=== PATIENT | female | born 1960 | race Caucasian/White ===

== ENCOUNTER 2020-11-01 14:33 | Inpatient (IN) | payer MEDICARE, MEDICAID, SELFPAY ==
--- NOTE | 2020-11-01 14:40 | ECG_ITS ---
Test Reason : ALTERED MENTAL STATU Blood Pressure : / mmHG Vent. Rate : 069 BPM Atrial Rate : 069 BPM P-R Int : 120 ms QRS Dur : 074 ms QT Int : 446 ms P-R-T Axes : 074 071 068 degrees QTc Int : 477 ms Normal sinus rhythm with sinus arrhythmia Normal ECG No previous ECGs available Referred By: Allegra Pritchard Electronically Signed By:FELIPA BREWSTER
--- NOTE | 2020-11-01 14:40 | CT_ITS ---
EXAMINATION: CT HEAD WITHOUT CONTRAST CT CERVICAL SPINE WITHOUT CONTRAST CLINICAL INFORMATION: Altered mental status. Fall. COMPARISON: Brain MRI from 11/01/2020. TECHNIQUE: Contiguous axial imaging was performed from the skull base to vertex without intravenous administration of contrast. Contiguous axial imaging was performed from the upper chest through the skull base without intravenous administration of contrast. Coronal and sagittal reformats were obtained at the acquisition workstation. DLP: 882 mGy-cm FINDINGS: Head: There are regions of lost moe-white matter differentiation predominantly in the left parietal lobe, left lentiform nucleus/insula, and lateral aspect of the left cerebellar hemisphere that correlate with acute infarcts demonstrated on same-day brain MRI. Multiple additional smaller acute infarcts within the right cerebellar hemisphere, midbrain, and bilateral frontoparietal deep white matter are better demonstrated on MRI. There are also chronic appearing infarcts in the high bilateral parietal lobes with associated volume loss. There is no evidence of acute intracranial hemorrhage. The ventricles are normal in size and configuration. No evidence for obstructive hydrocephalus. No abnormal mass effect or midline shift. No extra-axial fluid collections. No acute soft tissue or osseous abnormalities. The mastoid air cells and paranasal sinuses are clear. Cervical Spine: The atlantooccipital and atlantoaxial articulations remain well aligned. Straightening of the normal cervical lordosis. Mild degenerative anterolisthesis of C3 on C4. Otherwise, there is anatomic alignment of the vertebral bodies and posterior elements. No evidence of acute fracture or subluxation. The vertebral body heights are maintained. Advanced degenerative disc disease from C4-C7 with disc-osteophyte complexes. Prominent facet and uncovertebral joint arthropathy leads to osseous encroachment on the neural foramina from C2-T1. There is no prevertebral soft tissue swelling. The thyroid gland and remaining cervical soft tissues are normal in appearance. Mild to moderate underlying centrilobular emphysema. CT/CT cervical spine wo con IMPRESSION: 1. Multifocal supratentorial and infratentorial acute infarcts, most notably within the left parietal lobe, left lentiform nucleus/insula, and left cerebellar hemisphere. No evidence of associated acute intracranial hemorrhage. Chronic insufflation of the bilateral parietal lobes. 2. No evidence of acute fracture or traumatic subluxation of the cervical spine. Moderate multilevel degenerative spondyloarthropathy of the cervical spine.
--- NOTE | 2020-11-01 14:41 | XR_ITS ---
EXAMINATION: CHEST AND RIGHT FOOT. CLINICAL INFORMATION: Fall. Pain. COMPARISON: None TECHNIQUE: Chest one view. Right foot 3 views. FINDINGS: Chest: The lungs are well-expanded and clear of acute pneumonic consolidation. There is no pleural effusion. The heart size and pulmonary vascularity is normal. No gross bony abnormality seen. Right foot: There is moderate hallux valgus deformity first MTP joint. There is no visible acute fracture, dislocation or subluxation seen. The ankle mortise and subtalar joints are normal. There is a lateral fibular plate and screws for old healed fibular fracture. XR/XR chest 1V IMPRESSION: Unremarkable chest exam. No visible acute fracture, dislocation or subluxation right foot. There is distal lateral fibular plate for a healed fracture..
--- NOTE | 2020-11-01 14:42 | ED_ITS ---
HPI - Altered Mental Status General Chief Complaint: Altered Mental Status Stated Complaint: FALL Time Seen by Provider: 11/01/20 14:39 Source: family and EMS Mode of arrival: EMS Limitations: altered mental status History of Present Illness HPI narrative: not seen by family in 2 days, EMS called found to be confused, wandering around the house with bleeding from R ear complaint: altered mental status Onset (ago): unknown Timing confirmed by: family member Severity: similar to previous episodes Consistency of symptoms: getting Worse Context: alcohol abuse and drug abuse Associated symptoms: denies other symptoms Related Data Home Medications Medication Instructions Recorded Confirmed bupropion HCl [Wellbutrin XL] 300 mg PO DAILY 11/01/20 11/01/20 famotidine 20 mg PO BID 11/01/20 11/01/20 naltrexone 50 mg PO BEDTIME 11/01/20 11/01/20 pantoprazole [Protonix] 40 mg PO DAILY 11/01/20 11/01/20 paroxetine HCl [Paxil] 20 mg PO DAILY 11/01/20 11/01/20 salmeterol [Serevent Diskus] 1 inh INHALATION BID 11/01/20 11/01/20 Allergies Allergy/AdvReac Type Severity Reaction Status Date / Time No Known Allergies Allergy Verified 11/01/20 14:40 Review of Systems Review of Systems: ROS unable to be obtained due to altered mental status PMFSH Past Medical History Attestation statement: The following information was validated with the patient. Medical History (Updated 11/01/20 @ 16:17 by Liberty Kamara DO) Substance abuse Unknown family medical history Surgical History (Updated 11/01/20 @ 14:49 by Indu Corona) Surgical history unknown Social History Social History (Updated 11/01/20 @ 14:49 by Liberty Kamara DO) Smoking Status: Current every day smoker Use of substances other than those prescribed or required for medical reasons: Yes Advance Directives: No Advance Directives Information Provided: No Physical Exam Vital Signs: Vital Signs: Last Vital Signs Temp 98.7 F 11/01/20 15:40 Pulse 68 11/01/20 15:40 Resp 16 11/01/20 15:40 BP 146/87 H 11/01/20 15:40 Pulse Ox 98 11/01/20 15:40 Body Mass Index 13.7 Appearance: Alert. Oriented X1 moderate acute distress. Eyes: Pupils equal, round and reactive to light. ENT: Pharynx normal. R ear upper pinna laceration 4cm anteriorly down to cartilage ragged and avulsed, R TM scant hemotympanum noted ?hard to tell with blood that went into canal Neck: Normal inspection. Neck supple. CVS: Normal heart rate and rhythm. Pulses normal. Respiratory: No respiratory distress. Breath sounds normal. Abdomen: Soft and non-tender. Skin: Skin warm and dry. Normal skin color. Normal skin turgor. Extremities: No lower extremity edema. R foot erythematous, hot to touch, NV intact Neuro: Oriented X 1. No motor deficit. No sensory deficit. Follows commands, moderate expressive aphasia NIH Stroke Scale Internal: Initial- Upon Arrival Level of Consciousness: Alert Level of Consciousness Questions: Answers one question correctly Level of Consciousness Commands: Performs one task correctly Best Gaze: Normal Visual: No visual loss Facial Palsy: Normal Motor Arm (Right): No drift Motor Arm (Left): No drift Motor Leg (Right): Drift Motor Leg (Left): No drift Limb Ataxia: Absent Sensory: Normal Best Language: Mild to moderate aphasia Dysarthia: Normal Extinction and Inattention: Visual, tactile, auditory, spatial, or personal inattention Score: 5 Course Course Course Narrative: R ear was dressed with non stick as well as pressure dressing to front and back and renee wrap MRI ordered suspect stroke last seen well on Wednesday c/o headache to her sister at that time signed out to Dr. Chatterjee pending further workup Procedures Laceration Laceration 1: Site: other (ear) Side (If applicable): right Size (cm): 4 Description: flap, irregular and contaminated Depth: involves muscle layer Pre-repair: wound explored, irrigated extensively, extensive debridement and wound margins revised Skin layer closed with: nylon Size (cm): 6-0 Number of sutures: 3 Technique: simple, interrupted MDM - Altered Mental Status MDM Narrative Medical decision making narrative: 60 yo female with hx of substance abuse here with AMS / expressive aphasia and ear laceration suspect stroke but last known well was 2 days ago and told sister she had headache - STAT head CT, cspine, CXR and R foot xray, labs, cultures, IVF, IV zosyn for erythematous R foot, will need R ear surgical repair as well Lab Data Result diagrams: 11/01/20 15:19 11/01/20 15:19 Labs: Lab Results 11/01/20 11/01/20 11/01/20 Range/Units 15:18 15:19 15:19 WBC 12.5 H (4.8-10.8) X10*3/uL RBC 3.80 L (4.20-5.50) X10*6/uL Hgb 10.4 L (12.0-16.0) g/dl Hct 32.2 L (37-47) % MCV 84.7 (80-98) fL MCH 27.4 (27.0-33.0) pg MCHC 32.3 (31.0-35.0) g/dl RDW 14.2 (11.0-16.0) % Plt Count 311 (160-400) X10*3/uL MPV 10.1 (9.4-12.3) fL Immature Gran % (Auto) 0.3 (0.0-0.4) % Neut % (Auto) 86.1 H (45-73) % Lymph % (Auto) 7.4 L (20-40) % [place] % (Auto) 4.9 (2-11) % Eos % (Auto) 1.0 (0-4) % Baso % (Auto) 0.3 (0-2) % Lymph # (Auto) 0.9 L (1.2-4.9) X10*3/uL [place] # (Auto) 0.6 (0.1-1.2) X10*3/uL Eos # (Auto) 0.1 (0.0-0.4) X10*3/uL Baso # (Auto) 0.0 (0.0-0.2) X10*3/uL Abs Immat Gran (auto) 0.04 H (0.00-0.03) X10*3/uL Absolute Neuts (auto) 10.8 H (2.0-8.3) X10*3/uL Absolute Nucleated RBC 0.000 (0.0-0.012) X10*3/uL Nucleated RBC % (auto) 0.0 (0.0-0.2) /100WBC PT (10.8-13.0) SEC INR (0.9-1.1) APTT (24.1-38.0) SEC Sodium 134 L (135-145) mmol/L Potassium 4.6 (3.3-5.1) mmol/l Chloride 102 (96-108) mmol/L Carbon Dioxide 20 L (22-29) mmol/L Anion Gap 17 (12-20) BUN 33 H (9-16) mg/dL Creatinine 1.42 H (0.5-1.4) mg/dL Estim Creat Clear Calc 25.3 Estimated GFR 38 Random Glucose 108 (60-115) mg/dL Lactic Acid (0.5-2.0) mmol/L Calcium 8.8 (8.4-10.2) mg/dL Magnesium 2.0 (1.6-2.6) mg/dL Total Bilirubin 0.7 (0.0-1.0) mg/dL Direct Bilirubin 0.3 (0.0-0.5) mg/dL AST 44 H (5-31) U/L ALT 23 (0-31) U/L Alkaline Phosphatase 97 (39-117) U/L Ammonia (13-55) umol/L Total Creatine Kinase 360 H (26-140) U/L Troponin I High Sens (<3.5-17.0) ng/L Total Protein 7.4 (6.5-8.0) g/dL Albumin 3.8 (3.5-5.0) g/dL Lipase 15 (8-78) U/L Salicylates < 5.0 L (15-30) mg/dL Acetaminophen < 1 (<30) mcg/mL Ethyl Alcohol mg/dL COVID-19 ([facility]) Negative (Negative) COVID-19 Clin Com See Note 11/01/20 11/01/20 11/01/20 Range/Units 15:19 15:19 15:19 WBC (4.8-10.8) X10*3/uL RBC (4.20-5.50) X10*6/uL Hgb (12.0-16.0) g/dl Hct (37-47) % MCV (80-98) fL MCH (27.0-33.0) pg MCHC (31.0-35.0) g/dl RDW (11.0-16.0) % Plt Count (160-400) X10*3/uL MPV (9.4-12.3) fL Immature Gran % (Auto) (0.0-0.4) % Neut % (Auto) (45-73) % Lymph % (Auto) (20-40) % [place] % (Auto) (2-11) % Eos % (Auto) (0-4) % Baso % (Auto) (0-2) % Lymph # (Auto) (1.2-4.9) X10*3/uL [place] # (Auto) (0.1-1.2) X10*3/uL Eos # (Auto) (0.0-0.4) X10*3/uL Baso # (Auto) (0.0-0.2) X10*3/uL Abs Immat Gran (auto) (0.00-0.03) X10*3/uL Absolute Neuts (auto) (2.0-8.3) X10*3/uL Absolute Nucleated RBC (0.0-0.012) X10*3/uL Nucleated RBC % (auto) (0.0-0.2) /100WBC PT (10.8-13.0) SEC INR (0.9-1.1) APTT (24.1-38.0) SEC Sodium (135-145) mmol/L Potassium (3.3-5.1) mmol/l Chloride (96-108) mmol/L Carbon Dioxide (22-29) mmol/L Anion Gap (12-20) BUN (9-16) mg/dL Creatinine (0.5-1.4) mg/dL Estim Creat Clear Calc Estimated GFR Random Glucose (60-115) mg/dL Lactic Acid 1.5 (0.5-2.0) mmol/L Calcium (8.4-10.2) mg/dL Magnesium (1.6-2.6) mg/dL Total Bilirubin (0.0-1.0) mg/dL Direct Bilirubin (0.0-0.5) mg/dL AST (5-31) U/L ALT (0-31) U/L Alkaline Phosphatase (39-117) U/L Ammonia 35 (13-55) umol/L Total Creatine Kinase (26-140) U/L Troponin I High Sens 67.9 H (<3.5-17.0) ng/L Total Protein (6.5-8.0) g/dL Albumin (3.5-5.0) g/dL Lipase (8-78) U/L Salicylates (15-30) mg/dL Acetaminophen (<30) mcg/mL Ethyl Alcohol mg/dL COVID-19 ([facility]) (Negative) COVID-19 Clin Com 11/01/20 11/01/20 Range/Units 15:19 15:51 WBC (4.8-10.8) X10*3/uL RBC (4.20-5.50) X10*6/uL Hgb (12.0-16.0) g/dl Hct (37-47) % MCV (80-98) fL MCH (27.0-33.0) pg MCHC (31.0-35.0) g/dl RDW (11.0-16.0) % Plt Count (160-400) X10*3/uL MPV (9.4-12.3) fL Immature Gran % (Auto) (0.0-0.4) % Neut % (Auto) (45-73) % Lymph % (Auto) (20-40) % [place] % (Auto) (2-11) % Eos % (Auto) (0-4) % Baso % (Auto) (0-2) % Lymph # (Auto) (1.2-4.9) X10*3/uL [place] # (Auto) (0.1-1.2) X10*3/uL Eos # (Auto) (0.0-0.4) X10*3/uL Baso # (Auto) (0.0-0.2) X10*3/uL Abs Immat Gran (auto) (0.00-0.03) X10*3/uL Absolute Neuts (auto) (2.0-8.3) X10*3/uL Absolute Nucleated RBC (0.0-0.012) X10*3/uL Nucleated RBC % (auto) (0.0-0.2) /100WBC PT 12.3 (10.8-13.0) SEC INR 1.0 (0.9-1.1) APTT 27.8 (24.1-38.0) SEC Sodium (135-145) mmol/L Potassium (3.3-5.1) mmol/l Chloride (96-108) mmol/L Carbon Dioxide (22-29) mmol/L Anion Gap (12-20) BUN (9-16) mg/dL Creatinine (0.5-1.4) mg/dL Estim Creat Clear Calc Estimated GFR Random Glucose (60-115) mg/dL Lactic Acid (0.5-2.0) mmol/L Calcium (8.4-10.2) mg/dL Magnesium (1.6-2.6) mg/dL Total Bilirubin (0.0-1.0) mg/dL Direct Bilirubin (0.0-0.5) mg/dL AST (5-31) U/L ALT (0-31) U/L Alkaline Phosphatase (39-117) U/L Ammonia (13-55) umol/L Total Creatine Kinase (26-140) U/L Troponin I High Sens (<3.5-17.0) ng/L Total Protein (6.5-8.0) g/dL Albumin (3.5-5.0) g/dL Lipase (8-78) U/L Salicylates (15-30) mg/dL Acetaminophen (<30) mcg/mL Ethyl Alcohol < 10 mg/dL COVID-19 ([facility]MANI) (Negative) COVID-19 Clin Com ECG Data ECG #1: Attestation: I personally reviewed and interpreted this ECG as follows: ECG interpretation date: 11/01/20 ECG interpretation time: 16:24 Interpretation: Rate: 69 Rhythm: NSR [place]: normal Normal P waves. Normal CHELSEY. Normal QRS complex. ST T wave : no ALCIRA qTC: normal prior studies: no acute ischemia The study has been interpreted contemporaneously by me. . Discharge Plan Discharge Clinical Impression: Encephalopathy, Expressive aphasia Laceration of ear Qualifiers: Encounter type: initial encounter Laterality: right Qualified Code(s): S01.311A - Laceration without foreign body of right ear, initial encounter Patient Disposition: Admitted As Inpatient
[2020-11-01 14:44] VITALS: BP 162/93; RESP 20; BMI 13.7
--- NOTE | 2020-11-01 14:45 | XR_ITS ---
EXAMINATION: CHEST AND RIGHT FOOT. CLINICAL INFORMATION: Fall. Pain. COMPARISON: None TECHNIQUE: Chest one view. Right foot 3 views. FINDINGS: Chest: The lungs are well-expanded and clear of acute pneumonic consolidation. There is no pleural effusion. The heart size and pulmonary vascularity is normal. No gross bony abnormality seen. Right foot: There is moderate hallux valgus deformity first MTP joint. There is no visible acute fracture, dislocation or subluxation seen. The ankle mortise and subtalar joints are normal. There is a lateral fibular plate and screws for old healed fibular fracture. XR/XR foot RT min 3V IMPRESSION: Unremarkable chest exam. No visible acute fracture, dislocation or subluxation right foot. There is distal lateral fibular plate for a healed fracture..
--- NOTE | 2020-11-01 14:55 | PC.NURSE ---
SPOKE WITH SISTER LUCIANO, STATES SHE LAST SAW PT WEDNESDAY AND PT HAD A H/A. DID NOT HEAR FRO HER SINCE AND USUALLY TALKS TO HER TWICE A DAY. WHEN SHE WENT TO PT HOUSE, PT UNABLE TO GET HER WORDS OUT. SISTER THINKS SHE HAS NOT BEEN GOING TO GET HER MEDICATIONS SHE IS SUPPOSED TO. SISTER STATES PT HAS BEEN POSSIBLY USING CRACK OR HUFFING. SHE IS WORRIED FOR PT WELL BEING. LUCIANO CAN BE REACHED AT [phone]
[2020-11-01] MEDS: 0.9 % Sodium Chloride 1,000 ML 999 ML IVCONT ×2 (15:24→16:53)
[2020-11-01 15:26] VITALS: BP 147/91; PULSE 76; RESP 11; TEMP 36.8; O2SAT 100
[2020-11-01 15:30] LABS: MANUAL DIFF FLAG NO
[2020-11-01 15:31] LABS: Basophils Percent Auto 0.3 % (0-2); Eosinophils Absolute Auto 0.1 X10*3/uL (0.0-0.4); Hematocrit 32.2 % (37-47); Hemoglobin 10.4 g/dl (12.0-16.0); Imm Gran Abs Auto 0.04 X10*3/uL (0.00-0.03); Imm Gran Pct Auto 0.3 % (0.0-0.4); Lymphocytes Absolute Auto 0.9 X10*3/uL (1.2-4.9); Lymphocytes Percent Auto 7.4 % (20-40); Mean Corpuscular HGB Conc 32.3 g/dl (31.0-35.0); Mean Corpuscular Hemoglobin 27.4 pg (27.0-33.0); Mean Corpuscular Volume 84.7 fL (80-98); Mean Platelet Volume 10.1 fL (9.4-12.3); Monocytes Absolute Auto 0.6 X10*3/uL (0.1-1.2); Monocytes Percent Auto 4.9 % (2-11); Neutrophils Absolute Auto 10.8 X10*3/uL (2.0-8.3); Neutrophils Percent Auto 86.1 % (45-73); Platelet Count 311 X10*3/uL (160-400); Red Cell Distribution Width 14.2 % (11.0-16.0); White Blood Count 12.5 X10*3/uL (4.8-10.8)
[2020-11-01 15:40] VITALS: BP 146/87; PULSE 68; RESP 16; TEMP 37.1; O2SAT 98
[2020-11-01] MEDS: Piperacillin Sodium/Tazobactam 3.375 GM in 0.9 % Sodium Chloride 50 ML IV (15:45)
[2020-11-01 15:55] LABS: Ammonia 35 umol/L (13-55)
[2020-11-01 15:57] LABS: COVID-19 Test Negative (Negative)
[2020-11-01 15:58] LABS: Lactic Acid 1.5 mmol/L (0.5-2.0)
[2020-11-01 16:01] LABS: Ethanol < 10 mg/dL
[2020-11-01 16:03] LABS: Prothrombin Time 12.3 SEC (10.8-13.0)
[2020-11-01 16:06] LABS: Partial Thromboplastin Time 27.8 SEC (24.1-38.0)
--- NOTE | 2020-11-01 16:10 | MR_ITS ---
EXAMINATION: MR BRAIN WITHOUT CONTRAST CLINICAL INFORMATION: Altered mental status. Expressive aphasia. COMPARISON: Head CT 11/01/2020. TECHNIQUE: Multiplanar, multisequence imaging of the brain was performed without intravenous contrast. FINDINGS: Multiple scattered foci of acute infarction are seen within the varying vascular territories. Infarcts are seen within the left frontal lobe, bilateral parietal lobes, left parietal temporal lobe, left occipital lobe, left basal ganglia, left midbrain, and left more than right cerebellum. There is cytotoxic edema within the areas of infarction. Chronic infarction with areas of gliosis are seen in the bilateral occipital lobes. The ventricles are normal in size without hydrocephalus. No hemorrhage is seen on the GRE sequence. There is no mass or extra-axial fluid collection. The major arterial flow voids are preserved at the skull base. The orbital contents appear normal. MR/MR head/brain wo con IMPRESSION: Numerous foci of acute infarction seen within multiple vascular territories most concerning for an embolic etiology. The greatest burden of infarcts are seen in the left MCA vascular territory. Chronic infarcts are seen within the bilateral occipital lobes. There is no hemorrhage or mass effect.
[2020-11-01 16:19] LABS: Troponin-I High Sensitivity 67.9 ng/L (<3.5-17.0)
[2020-11-01 16:23] LABS: Acetaminophen LAB < 1 mcg/mL (<30); Alanine Aminotransferase 23 U/L (0-31); Albumin Level 3.8 g/dL (3.5-5.0); Alkaline Phosphatase 97 U/L (39-117); Anion Gap 17 (12-20); Aspartate Amino Transferase 44 U/L (5-31); Bilirubin Direct 0.3 mg/dL (0.0-0.5); Bilirubin Total 0.7 mg/dL (0.0-1.0); Blood Urea Nitrogen 33 mg/dL (9-16); Calcium 8.8 mg/dL (8.4-10.2); Carbon Dioxide 20 mmol/L (22-29); Chloride 102 mmol/L (96-108); Creatinine Clr Calc Pharmacy 25.3; Estimated Glomerular Filt Rate 38; Glucose Random 108 mg/dL (60-115); Lipase 15 U/L (8-78); Potassium 4.6 mmol/l (3.3-5.1); Salicylate < 5.0 mg/dL (15-30); Sodium 134 mmol/L (135-145); Total Protein 7.4 g/dL (6.5-8.0)
--- NOTE | 2020-11-01 17:30 | PC.NURSE ---
call placed to pt sister to review MRI screening form, no answer at this time
[2020-11-01 18:23] LABS: Glucose Urine UA NEG (NEG); Leukocyte Esterase Urine NEG (NEG); Nitrite Urine NEG (NEG); Urine Blood 1+ (NEG); Urine Ketones NEG (NEG); Urine Protein TRACE MG/DL (NEG-TRACE)
[2020-11-01 18:26] LABS: Appearance Urine CLEAR; Color Urine YELLOW; PH 6.5 (5.0-8.0)
[2020-11-01 18:35] LABS: Amphetamine Screen Urine Not Detected (Not Detect); Barbiturates, Urine Not Detected (Not Detect); Benzodiazepines Screen Urine POSITIVE (Not Detect); Cannabinoid Screen Urine Not Detected (Not Detect); Cocaine Screen Urine POSITIVE (Not Detect); Opiate Screen Urine POSITIVE (Not Detect); Phencyclidine Screen Urine Not Detected (Not Detect)
[2020-11-01 18:44] LABS: Squamous Epithelial Cell Urine 2+ /LPF; WBC Urine 0-2 /HPF (0-4)
[2020-11-01] MEDS: Aspirin 81 MG TAB.CHEW 324 MG PO (19:51)
--- NOTE | 2020-11-01 20:47 | PM.IMHP ---
History of Present Illness Date of Service: 11/01/20 Chief Complaint: Altered mentation, aphasia This is a 60-year-old female with past medical history of polysubstance abuse, GERD, who presents to the hospital after family found her to be altered at home. History is obtained mostly from ED physician as well as EMR as patient is somewhat confused, not following my questions and not answering appropriately. According to chart Past shins family tried to reach her but were unable to contact her for 2 days, her sister went to her home and found her wandering around had aphasic speech. Therefore EMS was called and patient was brought into the hospital. Patient herself denies any symptoms at this time but cubes repeating herself that she wants food. She is not oriented to place or time. Unable to obtain rest of review of system is patient is altered and is not really answer my questions. On arrival to the ED hemodynamically stable with no significant abnormal vitals Labs are significant for WBC count of 12.5, globin of 10.4, sodium of 134, BUN of 33 with a creatinine of 1.42, AST of 44, CPK of 360, high sensitivity troponin of 67.9, patient denies chest pain. Initial head CT was negative, MRI done that in the day showed numerous foci of acute infarction seen within multiple vascular territories most concerning for an embolic etiology. The greatest burden of infarcts are seen in the left MCA vascular territory. Chronic infarcts are seen within the bilateral occipital lobes. no hemorrhage or mass effect. I am unable to obtain any past medical history as patient is altered and no previous admissions to the hospital a records on EMR. But according to medication she is taking famotidine, pantoprazole, paroxetine, mg p.o. pre on which indicate history of GERD, and depression Patient also has positive UDS for cocaine and opioids and admitted to using both. Therefore polysubstance abuse. Review of Systems Review of Systems: Yes Unobtainable due to mental condition Neurologic: Reports confusion Psychiatric: Psychiatric: Reports confusion [facility] Medical History Substance abuse Unknown family medical history Surgical History (Updated 11/01/20 @ 14:49 by Indu Corona) Surgical history unknown Social History (Updated 11/01/20 @ 14:49 by Liberty Kamara DO) Smoking Status: Current every day smoker Use of substances other than those prescribed or required for medical reasons: Yes Advance Directives: No Advance Directives Information Provided: No Meds Allergies Allergy/AdvReac Type Severity Reaction Status Date / Time No Known Allergies Allergy Verified 11/01/20 14:40 Home Medications Medication Instructions Recorded Confirmed Type bupropion HCl [Wellbutrin XL] 300 mg PO DAILY 11/01/20 11/01/20 History famotidine 20 mg PO BID 11/01/20 11/01/20 History naltrexone 50 mg PO BEDTIME 11/01/20 11/01/20 History pantoprazole [Protonix] 40 mg PO DAILY 11/01/20 11/01/20 History paroxetine HCl [Paxil] 20 mg PO DAILY 11/01/20 11/01/20 History salmeterol [Serevent Diskus] 1 inh INHALATION BID 11/01/20 11/01/20 History Physical Exam Vital Signs and Narrative: Vital Signs: Last Vital Signs Temp 98.7 F 11/01/20 15:40 Pulse 68 11/01/20 15:40 Resp 16 11/01/20 15:40 BP 146/87 H 11/01/20 15:40 Pulse Ox 98 11/01/20 15:40 Body Mass Index 13.7 Const: Other: Patient agitated, does not follow my questions appropriately, keeps asking for food obsessively, nonstop. General: acute distress, confusion and poor hygiene Orientation/consciousness: oriented to person and confusion Eyes: General: appearance normal, both eyes and all related structures Pupils: Equal, round and reactive pupils present Resp: Effort & Inspection: normal respiratory effort and able to speak in complete sentences Cardio: Rate: regular rate Rhythm: regular rhythm GI: Palpation (GI): Soft to palpation Auscultation: normal bowel sounds Skin: Other: Skin appears dry, dehydrated Track randall on arms bilaterally General skin exam: no rashes or lesions noted and dry skin Neuro: Other: But I am unable to her neurological function completely as patient is not following mycommands in regards to PE General: oriented to person, confusion and Unable to assess gait Cranial nerves: Yes Equal, round and reactive pupils present Cognition (Neuro): abnormal cognition Speech: Expressive aphasia present Gait exam (Neuro): Unable to assess gait Motor exam (neuro): Other motor observations present (unable to assess strength as pt not following commands) Extrem: General: Yes normal to inspection and Yes no pedal edema Results Labs CBC and Chem 7: 11/01/20 15:19 11/01/20 15:19 Labs: Laboratory Results - last 24 hr 11/01/20 11/01/20 11/01/20 15:18 15:19 15:19 MCV 84.7 MCH 27.4 MCHC 32.3 RDW 14.2 Plt Count 311 MPV 10.1 Immature Gran % (Auto) 0.3 Neut % (Auto) 86.1 H Lymph % (Auto) 7.4 L [place] % (Auto) 4.9 Eos % (Auto) 1.0 Baso % (Auto) 0.3 Lymph # (Auto) 0.9 L [place] # (Auto) 0.6 Eos # (Auto) 0.1 Baso # (Auto) 0.0 Abs Immat Gran (auto) 0.04 H Absolute Neuts (auto) 10.8 H Absolute Nucleated RBC 0.000 Nucleated RBC % (auto) 0.0 PT INR APTT Anion Gap 17 Estim Creat Clear Calc 25.3 Estimated GFR 38 Random Glucose 108 Lactic Acid Calcium 8.8 Magnesium 2.0 Total Bilirubin 0.7 Direct Bilirubin 0.3 AST 44 H ALT 23 Alkaline Phosphatase 97 Ammonia Total Creatine Kinase 360 H Troponin I High Sens Total Protein 7.4 Albumin 3.8 Lipase 15 Urine Color Urine Appearance Urine pH Ur Specific [place] Urine Protein Urine Glucose (UA) Urine Ketones Urine Blood Urine Nitrite Ur Leukocyte Esterase Urine RBC Urine WBC Ur Squamous Epith Cells Urine Bacteria Salicylates < 5.0 L Urine Opiates Screen Acetaminophen < 1 Ur Barbiturates Screen Ur Phencyclidine Scrn Ur Amphetamines Screen U Benzodiazepines Scrn Urine Cocaine Screen U Marijuana (THC) Screen Ethyl Alcohol COVID-19 (YASMANI) Negative COVID-19 Clin Com See Note 11/01/20 11/01/20 11/01/20 15:19 15:19 15:19 MCV MCH MCHC RDW Plt Count MPV Immature Gran % (Auto) Neut % (Auto) Lymph % (Auto) [place] % (Auto) Eos % (Auto) Baso % (Auto) Lymph # (Auto) [place] # (Auto) Eos # (Auto) Baso # (Auto) Abs Immat Gran (auto) Absolute Neuts (auto) Absolute Nucleated RBC Nucleated RBC % (auto) PT INR APTT Anion Gap Estim Creat Clear Calc Estimated GFR Random Glucose Lactic Acid 1.5 Calcium Magnesium Total Bilirubin Direct Bilirubin AST ALT Alkaline Phosphatase Ammonia 35 Total Creatine Kinase Troponin I High Sens 67.9 H Total Protein Albumin Lipase Urine Color Urine Appearance Urine pH Ur Specific [place] Urine Protein Urine Glucose (UA) Urine Ketones Urine Blood Urine Nitrite Ur Leukocyte Esterase Urine RBC Urine WBC Ur Squamous Epith Cells Urine Bacteria Salicylates Urine Opiates Screen Acetaminophen Ur Barbiturates Screen Ur Phencyclidine Scrn Ur Amphetamines Screen U Benzodiazepines Scrn Urine Cocaine Screen U Marijuana (THC) Screen Ethyl Alcohol COVID-19 (YASMANI) COVID-19 BABL Media Com 11/01/20 11/01/20 11/01/20 15:19 15:51 17:57 MCV MCH MCHC RDW Plt Count MPV Immature Gran % (Auto) Neut % (Auto) Lymph % (Auto) [place] % (Auto) Eos % (Auto) Baso % (Auto) Lymph # (Auto) [place] # (Auto) Eos # (Auto) Baso # (Auto) Abs Immat Gran (auto) Absolute Neuts (auto) Absolute Nucleated RBC Nucleated RBC % (auto) PT 12.3 INR 1.0 APTT 27.8 Anion Gap Estim Creat Clear Calc Estimated GFR Random Glucose Lactic Acid Calcium Magnesium Total Bilirubin Direct Bilirubin AST ALT Alkaline Phosphatase Ammonia Total Creatine Kinase Troponin I High Sens Total Protein Albumin Lipase Urine Color YELLOW Urine Appearance CLEAR Urine pH 6.5 Ur Specific [place] 1.020 Urine Protein TRACE Urine Glucose (UA) NEG Urine Ketones NEG Urine Blood 1+ H Urine Nitrite NEG Ur Leukocyte Esterase NEG Urine RBC 5-9 H Urine WBC 0-2 Ur Squamous Epith Cells 2+ Urine Bacteria NONE Salicylates Urine Opiates Screen Acetaminophen Ur Barbiturates Screen Ur Phencyclidine Scrn Ur Amphetamines Screen U Benzodiazepines Scrn Urine Cocaine Screen U Marijuana (THC) Screen Ethyl Alcohol < 10 COVID-19 (YASMANI) COVID-19 BABL Media Com 11/01/20 17:57 MCV MCH MCHC RDW Plt Count MPV Immature Gran % (Auto) Neut % (Auto) Lymph % (Auto) [place] % (Auto) Eos % (Auto) Baso % (Auto) Lymph # (Auto) [place] # (Auto) Eos # (Auto) Baso # (Auto) Abs Immat Gran (auto) Absolute Neuts (auto) Absolute Nucleated RBC Nucleated RBC % (auto) PT INR APTT Anion Gap Estim Creat Clear Calc Estimated GFR Random Glucose Lactic Acid Calcium Magnesium Total Bilirubin Direct Bilirubin AST ALT Alkaline Phosphatase Ammonia Total Creatine Kinase Troponin I High Sens Total Protein Albumin Lipase Urine Color Urine Appearance Urine pH Ur Specific [place] Urine Protein Urine Glucose (UA) Urine Ketones Urine Blood Urine Nitrite Ur Leukocyte Esterase Urine RBC Urine WBC Ur Squamous Epith Cells Urine Bacteria Salicylates Urine Opiates Screen POSITIVE H Acetaminophen Ur Barbiturates Screen Not Detected Ur Phencyclidine Scrn Not Detected Ur Amphetamines Screen Not Detected U Benzodiazepines Scrn POSITIVE H Urine Cocaine Screen POSITIVE H U Marijuana (THC) Screen Not Detected Ethyl Alcohol COVID-19 (YASMANI) COVID-19 Clin Com Imaging Radiologist's Impressions: Impressions Brain MRI 11/01/20 16:10 IMPRESSION: Numerous foci of acute infarction seen within multiple vascular territories most concerning for an embolic etiology. The greatest burden of infarcts are seen in the left MCA vascular territory. Chronic infarcts are seen within the bilateral occipital lobes. There is no hemorrhage or mass effect. Assessment and Plan (1) Embolic stroke: Status: Acute (2) Polysubstance abuse: Status: Acute (3) Leukocytosis: Status: Acute (4) Malnourished: Qualifiers: Malnutrition type: protein-calorie malnutrition Protein-calorie malnutrition severity: severe Qualified Code(s): E43 - Unspecified severe protein-calorie malnutrition Status: Acute (5) Low BMI: Status: Acute This is a 60-year-old female who presents to the hospital after being found altered by family. To have aphasia, MRI indicative of multiple infarcts, suggestive of embolic CVA. # embolic stroke - possibly secondary to AFib versus secondary to cocaine abuse. Although septic emboli in the setting of endocarditis in a patient with IV drug use, is less likely it remains a possibility as patient does have history of IV drug use and UDS was positive for opioids and cocaine - patient altered, has expressive aphasia, unable to obtain any further neurological exam in regards to extremities, gait, as patient not cooperating - patient has leukocytosis but is afebrile. - neurology was consulted and recommended aspirin and further stroke workup Plan: - will obtain echocardiogram, bilateral carotid Dopplers, place her on telemetry, - start her on aspirin, atorvastatin - will also start her on antibiotics, out of abundance of caution - PT/OT # possible since abuse - UDS positive for cocaine, as well as opioids - patient has track randall on both arms, and admitted to ED physician and myself that she does use heroin Plan: - will start her on hydroxyzine and clonidine p.r.n., - monitor for withdrawal symptoms # leukocytosis - patient afebrile - she does have history of IV drug use and therefore a.m. concern for endocarditis specially in the setting of embolic strokes - will start her on IV antibiotics, follow blood cultures, antibiotics can be DCd if blood cultures negative and/or patient shows no evidence of infection - follow CBC # malnourished/low BMI - most likely secondary to low oral intake DVT prophylaxis: Lovenox
[2020-11-01 22:00] VITALS: BP 150/83; PULSE 105; RESP 18; TEMP 37.4; O2SAT 98
[2020-11-02] VITALS (7 sets, daily range): BP systolic 138–181; BP diastolic 76–114; PULSE 82–99; RESP 16–20; TEMP 36.6–36.7; O2SAT 97–99
[2020-11-02] MEDS: Aspirin 81 MG TAB.CHEW PO ×2 (00:09→09:04)
[2020-11-02] MEDS: Atorvastatin Calcium 40 MG TABLET PO ×2 (00:09→20:59)
[2020-11-02] MEDS: Famotidine 20 MG TABLET 10 MG PO ×3 (00:09→20:59)
[2020-11-02] MEDS: Piperacillin Sodium/Tazobactam 2.25 GM in 0.9 % Sodium Chloride 50 ML IV ×3 (00:10→21:00)
[2020-11-02 00:31] LABS: Base Excess VBG 2.4 mmol/L; HCO3 VBG 25 mmol/L; Oxygen Saturation VBG 95.2 %; PCO2 VBG 30 mmhg; PO2 VBG 73 mmhg; pH VBG 7.53 (7.32-7.43)
[2020-11-02 00:57] LABS: Troponin-I High Sensitivity 47.4 ng/L (<3.5-17.0)
[2020-11-02] MEDS: 0.9 % Sodium Chloride Flush 3 ML SYRINGE IVFLUSH ×2 (01:00→15:03)
[2020-11-02] MEDS: vancomycin HCL 750 MG in 0.9 % Sodium Chloride 250 ML 265 MG IV (01:10)
[2020-11-02] MEDS: Enoxaparin Sodium 30 MG/0.3 ML SYRINGE SUBCUT (01:40)
[2020-11-02] MEDS: 0.9 % Sodium Chloride 1,000 ML 100 ML IVCONT ×2 (01:44→16:10)
[2020-11-02] MEDS: cloNIDine HCL 0.1 MG TABLET PO ×2 (02:41→10:43)
[2020-11-02] MEDS: hydrOXYzine HCL 25 MG TABLET PO ×4 (02:41→17:25)
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
--- NOTE | 2020-11-02 06:41 | PC.NURSE ---
no telesitters available for this patient.
[2020-11-02] MEDS: Omeprazole 20 MG CAPSULE.DR PO (06:59)
[2020-11-02] MEDS: LORazepam 2 MG/ML VIAL 0.25 MG IM (06:59)
[2020-11-02] MEDS: Salmeterol Xinafoate 50 MCG BLST.W.DEV 1 PUFF INHALE (07:48)
[2020-11-02] MEDS: LORazepam 2 MG/ML VIAL 0.25 MG IVPUSH (07:57)
[2020-11-02] MEDS: buPROPion HCl XL 300 MG TAB.ER.24H PO (08:10)
[2020-11-02] MEDS: PARoxetine HCL 20 MG TABLET PO (08:10)
--- NOTE | 2020-11-02 09:02 | PM.NEUROCN ---
History of Present Illness Data of Consult Service Date: 11/02/20 Primary Care Provider: Unknown Physician 60 years old woman with apparently history of polysubstance abuse was brought to hospital after she was found confused and with difficulty speaking. Onset of the symptoms was unclear and may be more than a day or 2 before she came to emergency room. There was no obvious focal weakness and initial workup and head CT did not reveal any abnormality. An MRI of brain was done that revealed multiple lesions and she was admitted. There was no sign of any seizures. She was unable to provide any meaningful history. She was not cooperative to history taking or examination. Review of Systems Review of Systems: Unable to perform at this time. She was not cooperative to interview or questioning. Neurologic: Reports confusion Psychiatric: Psychiatric: Reports confusion PMFSH Past Medical History Medical History (Updated 11/01/20 @ 21:18 by Adelaide Gonzales MD) Polysubstance abuse Unknown family medical history Surgical History Surgical History (Updated 11/01/20 @ 14:49 by Indu Corona) Surgical history unknown Social History Social History (Updated 11/01/20 @ 14:49 by Liberty Kamara DO) Smoking Status: Current every day smoker Use of substances other than those prescribed or required for medical reasons: Yes Advance Directives: No Advance Directives Information Provided: No Meds Allergies Allergy/AdvReac Type Severity Reaction Status Date / Time No Known Allergies Allergy Verified 11/01/20 14:40 Home Medications Medication Instructions Recorded Confirmed Type bupropion HCl [Wellbutrin XL] 300 mg PO DAILY 11/01/20 11/01/20 History famotidine 20 mg PO BID 11/01/20 11/01/20 History naltrexone 50 mg PO BEDTIME 11/01/20 11/01/20 History pantoprazole [Protonix] 40 mg PO DAILY 11/01/20 11/01/20 History paroxetine HCl [Paxil] 20 mg PO DAILY 11/01/20 11/01/20 History salmeterol [Serevent Diskus] 1 inh INHALATION BID 11/01/20 11/01/20 History Physical Exam Vital Signs: Vital Signs: Last Vital Signs Temp 98.1 F 11/02/20 00:00 Pulse 90 11/02/20 07:41 Resp 19 11/02/20 07:41 BP 181/89 H 11/02/20 07:41 Pulse Ox 98 12/12/20 07:41 Body Mass Index 13.7 This was limited exam as she was not cooperative. She told me her last name and refused to make her leg straight or answer questions. I was not sure if she fully comprehended all what I said. There was no obvious focal arm or leg weakness. Plantars were withdrawing. There was no obvious facial weakness or gaze deviation. I was unable to check visual bales. Const: General: confusion Orientation/consciousness: confusion Neuro: General: confusion Results Labs CBC & Chem 7: 11/01/20 15:19 11/01/20 15:19 Labs: Short CBC 11/01/20 Range/Units 15:19 WBC 12.5 H (4.8-10.8) X10*3/uL Hgb 10.4 L (12.0-16.0) g/dl Hct 32.2 L (37-47) % Plt Count 311 (160-400) X10*3/uL BMP 11/01/20 15:19 Sodium 134 L Potassium 4.6 Chloride 102 Carbon Dioxide 20 L BUN 33 H Creatinine 1.42 H Calcium 8.8 Cardiac Enzymes 11/01/20 Range/Units 15:19 Total Creatine Kinase 360 H (26-140) U/L Liver Function 11/01/20 Range/Units 15:19 Total Bilirubin 0.7 (0.0-1.0) mg/dL Direct Bilirubin 0.3 (0.0-0.5) mg/dL AST 44 H (5-31) U/L ALT 23 (0-31) U/L Alkaline Phosphatase 97 (39-117) U/L Albumin 3.8 (3.5-5.0) g/dL Urine 11/01/20 Range/Units 17:57 Urine Color YELLOW Urine Appearance CLEAR Urine pH 6.5 (5.0-8.0) Ur Specific [place] 1.020 (1.005-1.025) Urine Protein TRACE (NEG-TRACE) MG/DL Urine Glucose (UA) NEG (NEG) MG/DL Her MRI of brain without contrast revealed multiple area of restricted diffusion both in anterior and posterior circulation areas in both on left and right side with the largest lesion on left posterior parietal area with some element of what looked like vasogenic edema. Rest of the lesions did not seem to have any surrounding signal. These areas were also hyperintense on FLAIR, at least most of them, suggesting that this was probably subacute picture. Her tox screen was positive for cocaine. Assessment and Plan (1) Embolic stroke: Status: Acute 60 years old woman who was probably more aphasic than confused has multiple subacute bilateral anterior and posterior circulation subacute lesions suggestive of cerebral embolism. One of the lesion in left parietal area has signal around suggestive of vasogenic edema reason possibility today might be an alternate explanation such as malignancy. Overall imaging picture is somewhat atypical for vasoconstrictive syndrome sometime associated with cocaine. My recommendation at this time is to treat her with baby aspirin daily control vascular risk factors, a avoid hypotension, and have an MRI of brain with contrast also to especially look at left parietal lesion. CTA of brain and neck is also recommended to look at her vasculature and finally echocardiogram and Cardiology consultation to see if there was any obvious cardiac pathology that could create embolic phenomenon.
[2020-11-02] MEDS: OLANZapine 5 MG TABLET PO (09:04)
[2020-11-02 09:28] LABS: MANUAL DIFF FLAG NO
[2020-11-02 09:33] LABS: Basophils Absolute Auto 0.1 X10*3/uL (0.0-0.2); Basophils Percent Auto 0.5 % (0-2); Eosinophils Absolute Auto 0.3 X10*3/uL (0.0-0.4); Eosinophils Percent Auto 2.8 % (0-4); Hematocrit 33.8 % (37-47); Hemoglobin 10.7 g/dl (12.0-16.0); Imm Gran Abs Auto 0.04 X10*3/uL (0.00-0.03); Imm Gran Pct Auto 0.4 % (0.0-0.4); Lymphocytes Absolute Auto 1.2 X10*3/uL (1.2-4.9); Lymphocytes Percent Auto 10.1 % (20-40); Mean Corpuscular HGB Conc 31.7 g/dl (31.0-35.0); Mean Corpuscular Volume 85.4 fL (80-98); Mean Platelet Volume 10.8 fL (9.4-12.3); Monocytes Absolute Auto 0.7 X10*3/uL (0.1-1.2); Monocytes Percent Auto 5.8 % (2-11); Neutrophils Absolute Auto 9.2 X10*3/uL (2.0-8.3); Neutrophils Percent Auto 80.4 % (45-73); Platelet Count 282 X10*3/uL (160-400); Red Blood Count 3.96 X10*6/uL (4.20-5.50); Red Cell Distribution Width 14.3 % (11.0-16.0); White Blood Count 11.4 X10*3/uL (4.8-10.8)
--- NOTE | 2020-11-02 09:57 | PC.NURSE ---
Addendum entered by Opal De Leon RN 11/02/20 17:31: Patient continues to be restless, blood pressures elevated 180s over 1 teens, MD made aware, difficult to get true reading on dynamap. RN in room and able to keep patient still-long enough for repeat pressure, 138/88. One time dose of catapres was given prior. 1:1 sitter in pace for safety. Original Note: Patient extremely restless and jumping out of bed to the bathroom but not using it. She is alert to person only. Ativan IM was given on prior shift at 0700. Atarax was given at 0815 PO. COWS scale started on patient, MD made aware at this time. Patient scored a 23 moderate withdrawal. Patient continuously removing tele pack, nurse able to reapply for Qtc measurement per MD. Due for a carotid ultrasound, department attempted and patient was combative and refusing exam. Md ordered PO zyprexa, given. Patient is somewhat more relaxed but still very restless in the bed.
[2020-11-02 10:17] LABS: Alanine Aminotransferase 18 U/L (0-31); Albumin Level 3.3 g/dL (3.5-5.0); Alkaline Phosphatase 82 U/L (39-117); Anion Gap 15 (12-20); Aspartate Amino Transferase 28 U/L (5-31); Bilirubin Total 0.3 mg/dL (0.0-1.0); Blood Urea Nitrogen 22 mg/dL (9-16); C Reactive Protein 5.58 mg/dL (< or = 0.50); Calcium 7.9 mg/dL (8.4-10.2); Carbon Dioxide 18 mmol/L (22-29); Chloride 107 mmol/L (96-108); Creatinine Clr Calc Pharmacy 32.4; Estimated Glomerular Filt Rate 50; Glucose Random 100 mg/dL (60-115); Sodium 136 mmol/L (135-145)
--- NOTE | 2020-11-02 10:50 | P.CNPS_ITS ---
History of Present Illness Date of Service: 11/02/2020 Chief Complaint: Embolic Stroke Reason for Consult: Polysubstance use/WD Requesting physician: Allegra Pritchard Discussed with referring provider: Yes Sources of Information: patient interviewed and chart reviewed Additional Sources of Information: None HPI Narrative: Pt was admitted for ? embolic CVA. Neuro work up for CVA underway. Known Hx of IVDA. Pt difficult to evaluate given dysphasia. Past Hx gleaned from meds and chart + for depression. Noted to be confused/agitated. On interview, was restless, unkempt, agitated, dysarthic, paraphasic. Did say she was at [facility]/Oct 2020. On Direct Qs stated yes for being dopesick . Last use of heroin and cocaine on 10/31. Past Psychiatric History: Not known. No Hx M5 stays Medical Evaluation Reviewed: Yes Suspected embolic CVA. r/o endocarditis Personal & Social History: Not known currently Review of Systems Reports confusion Psychiatric: Reports confusion [facility] Medical History Polysubstance abuse Unknown family medical history Surgical History Surgical history unknown Family History: not known currently Social History: not known Substance History: Heroin/Cocaine +. Pt is on Naltrexone so ? ETOH use d/o but denies Trauma History: not known Diagnostics Vital Signs (24Hr): Vital Signs - 24 hr 11/01/20 14:44 11/01/20 15:26 11/01/20 15:40 Temperature 98.3 F 98.7 F Pulse Rate 76 68 Respiratory Rate 20 11 L 16 Blood Pressure 162/93 H 147/91 H 146/87 H Pulse Oximetry 100 98 11/01/20 22:00 11/02/20 00:00 11/02/20 07:41 Temperature 99.3 F 98.1 F Pulse Rate 105 H 85 90 Respiratory Rate 18 20 19 Blood Pressure 150/83 H 148/80 H 181/89 H Pulse Oximetry 98 99 98 Body Mass Index 13.7 Labs Results: 11/02/20 09:14 11/02/20 09:14 Labs: Laboratory Results - last 48 hr 11/01/20 11/01/20 11/01/20 15:18 15:19 15:19 WBC 12.5 H RBC 3.80 L Hgb 10.4 L Hct 32.2 L MCV 84.7 MCH 27.4 MCHC 32.3 RDW 14.2 Plt Count 311 MPV 10.1 Immature Gran % (Auto) 0.3 Neut % (Auto) 86.1 H Lymph % (Auto) 7.4 L [place] % (Auto) 4.9 Eos % (Auto) 1.0 Baso % (Auto) 0.3 Lymph # (Auto) 0.9 L [place] # (Auto) 0.6 Eos # (Auto) 0.1 Baso # (Auto) 0.0 Abs Immat Gran (auto) 0.04 H Absolute Neuts (auto) 10.8 H Absolute Nucleated RBC 0.000 Nucleated RBC % (auto) 0.0 PT INR APTT VBG pH VBG pCO2 VBG pO2 VBG HCO3 VBG O2 Saturation VBG Base Excess Sodium 134 L Potassium 4.6 Chloride 102 Carbon Dioxide 20 L Anion Gap 17 BUN 33 H Creatinine 1.42 H Estim Creat Clear Calc 25.3 Estimated GFR 38 Random Glucose 108 Lactic Acid Calcium 8.8 Magnesium 2.0 Total Bilirubin 0.7 Direct Bilirubin 0.3 AST 44 H ALT 23 Alkaline Phosphatase 97 Ammonia Total Creatine Kinase 360 H Troponin I High Sens C-Reactive Protein Total Protein 7.4 Albumin 3.8 Lipase 15 Urine Color Urine Appearance Urine pH Ur Specific [place] Urine Protein Urine Glucose (UA) Urine Ketones Urine Blood Urine Nitrite Ur Leukocyte Esterase Urine RBC Urine WBC Ur Squamous Epith Cells Urine Bacteria Salicylates < 5.0 L Urine Opiates Screen Acetaminophen < 1 Ur Barbiturates Screen Ur Phencyclidine Scrn Ur Amphetamines Screen U Benzodiazepines Scrn Urine Cocaine Screen U Marijuana (THC) Screen Ethyl Alcohol COVID-19 (YASMANI) Negative COVID-19 Clin Com See Note 11/01/20 11/01/20 11/01/20 15:19 15:19 15:19 WBC RBC Hgb Hct MCV MCH MCHC RDW Plt Count MPV Immature Gran % (Auto) Neut % (Auto) Lymph % (Auto) [place] % (Auto) Eos % (Auto) Baso % (Auto) Lymph # (Auto) [place] # (Auto) Eos # (Auto) Baso # (Auto) Abs Immat Gran (auto) Absolute Neuts (auto) Absolute Nucleated RBC Nucleated RBC % (auto) PT INR APTT VBG pH VBG pCO2 VBG pO2 VBG HCO3 VBG O2 Saturation VBG Base Excess Sodium Potassium Chloride Carbon Dioxide Anion Gap BUN Creatinine Estim Creat Clear Calc Estimated GFR Random Glucose Lactic Acid 1.5 Calcium Magnesium Total Bilirubin Direct Bilirubin AST ALT Alkaline Phosphatase Ammonia 35 Total Creatine Kinase Troponin I High Sens 67.9 H C-Reactive Protein Total Protein Albumin Lipase Urine Color Urine Appearance Urine pH Ur Specific [place] Urine Protein Urine Glucose (UA) Urine Ketones Urine Blood Urine Nitrite Ur Leukocyte Esterase Urine RBC Urine WBC Ur Squamous Epith Cells Urine Bacteria Salicylates Urine Opiates Screen Acetaminophen Ur Barbiturates Screen Ur Phencyclidine Scrn Ur Amphetamines Screen U Benzodiazepines Scrn Urine Cocaine Screen U Marijuana (THC) Screen Ethyl Alcohol COVID-19 (YASMANI) COVID-19 [email or web address] 11/01/20 11/01/20 11/01/20 15:19 15:51 17:57 WBC RBC Hgb Hct MCV MCH MCHC RDW Plt Count MPV Immature Gran % (Auto) Neut % (Auto) Lymph % (Auto) [place] % (Auto) Eos % (Auto) Baso % (Auto) Lymph # (Auto) [place] # (Auto) Eos # (Auto) Baso # (Auto) Abs Immat Gran (auto) Absolute Neuts (auto) Absolute Nucleated RBC Nucleated RBC % (auto) PT 12.3 INR 1.0 APTT 27.8 VBG pH VBG pCO2 VBG pO2 VBG HCO3 VBG O2 Saturation VBG Base Excess Sodium Potassium Chloride Carbon Dioxide Anion Gap BUN Creatinine Estim Creat Clear Calc Estimated GFR Random Glucose Lactic Acid Calcium Magnesium Total Bilirubin Direct Bilirubin AST ALT Alkaline Phosphatase Ammonia Total Creatine Kinase Troponin I High Sens C-Reactive Protein Total Protein Albumin Lipase Urine Color YELLOW Urine Appearance CLEAR Urine pH 6.5 Ur Specific [place] 1.020 Urine Protein TRACE Urine Glucose (UA) NEG Urine Ketones NEG Urine Blood 1+ H Urine Nitrite NEG Ur Leukocyte Esterase NEG Urine RBC 5-9 H Urine WBC 0-2 Ur Squamous Epith Cells 2+ Urine Bacteria NONE Salicylates Urine Opiates Screen Acetaminophen Ur Barbiturates Screen Ur Phencyclidine Scrn Ur Amphetamines Screen U Benzodiazepines Scrn Urine Cocaine Screen U Marijuana (THC) Screen Ethyl Alcohol < 10 COVID-19 (YASMANI) COVID-19 [email or web address] 11/01/20 11/02/20 11/02/20 17:57 00:10 00:10 WBC RBC Hgb Hct MCV MCH MCHC RDW Plt Count MPV Immature Gran % (Auto) Neut % (Auto) Lymph % (Auto) [place] % (Auto) Eos % (Auto) Baso % (Auto) Lymph # (Auto) [place] # (Auto) Eos # (Auto) Baso # (Auto) Abs Immat Gran (auto) Absolute Neuts (auto) Absolute Nucleated RBC Nucleated RBC % (auto) PT INR APTT VBG pH 7.53 H VBG pCO2 30 VBG pO2 73 VBG HCO3 25 VBG O2 Saturation 95.2 VBG Base Excess 2.4 Sodium Potassium Chloride Carbon Dioxide Anion Gap BUN Creatinine Estim Creat Clear Calc Estimated GFR Random Glucose Lactic Acid Calcium Magnesium Total Bilirubin Direct Bilirubin AST ALT Alkaline Phosphatase Ammonia Total Creatine Kinase Troponin I High Sens 47.4 H C-Reactive Protein Total Protein Albumin Lipase Urine Color Urine Appearance Urine pH Ur Specific [place] Urine Protein Urine Glucose (UA) Urine Ketones Urine Blood Urine Nitrite Ur Leukocyte Esterase Urine RBC Urine WBC Ur Squamous Epith Cells Urine Bacteria Salicylates Urine Opiates Screen POSITIVE H Acetaminophen Ur Barbiturates Screen Not Detected Ur Phencyclidine Scrn Not Detected Ur Amphetamines Screen Not Detected U Benzodiazepines Scrn POSITIVE H Urine Cocaine Screen POSITIVE H U Marijuana (THC) Screen Not Detected Ethyl Alcohol COVID-19 (YASMANI) COVID-19 Clin Com 11/02/20 11/02/20 09:14 09:14 WBC 11.4 H RBC 3.96 L Hgb 10.7 L Hct 33.8 L MCV 85.4 MCH 27.0 MCHC 31.7 RDW 14.3 Plt Count 282 MPV 10.8 Immature Gran % (Auto) 0.4 Neut % (Auto) 80.4 H Lymph % (Auto) 10.1 L [place] % (Auto) 5.8 Eos % (Auto) 2.8 Baso % (Auto) 0.5 Lymph # (Auto) 1.2 [place] # (Auto) 0.7 Eos # (Auto) 0.3 Baso # (Auto) 0.1 Abs Immat Gran (auto) 0.04 H Absolute Neuts (auto) 9.2 H Absolute Nucleated RBC 0.000 Nucleated RBC % (auto) 0.0 PT INR APTT VBG pH VBG pCO2 VBG pO2 VBG HCO3 VBG O2 Saturation VBG Base Excess Sodium 136 Potassium 4.0 Chloride 107 Carbon Dioxide 18 L Anion Gap 15 BUN 22 H Creatinine 1.11 Estim Creat Clear Calc 32.4 Estimated GFR 50 Random Glucose 100 Lactic Acid Calcium 7.9 L D Magnesium Total Bilirubin 0.3 Direct Bilirubin AST 28 ALT 18 Alkaline Phosphatase 82 Ammonia Total Creatine Kinase 284 H Troponin I High Sens C-Reactive Protein 5.58 H Total Protein 6.0 L Albumin 3.3 L Lipase Urine Color Urine Appearance Urine pH Ur Specific [place] Urine Protein Urine Glucose (UA) Urine Ketones Urine Blood Urine Nitrite Ur Leukocyte Esterase Urine RBC Urine WBC Ur Squamous Epith Cells Urine Bacteria Salicylates Urine Opiates Screen Acetaminophen Ur Barbiturates Screen Ur Phencyclidine Scrn Ur Amphetamines Screen U Benzodiazepines Scrn Urine Cocaine Screen U Marijuana (THC) Screen Ethyl Alcohol COVID-19 (YASMANI) COVID-19 Clin Com Imaging Radiology Impressions: ITS Impressions Brain MRI 11/01/20 16:10 IMPRESSION: Numerous foci of acute infarction seen within multiple vascular territories most concerning for an embolic etiology. The greatest burden of infarcts are seen in the left MCA vascular territory. Chronic infarcts are seen within the bilateral occipital lobes. There is no hemorrhage or mass effect. Mental Status Exam Mental Status Exam Patient Appearance: Disheveled, Perspiring, Unkempt, Bizarre and Malodorous Patient Orientation: Place and Situation Level of Consciousness: Awake, Disoriented, Restless, Obtunded and Follows Commands Patient Behavior: Posturing, Hyperactive, Belligerent and Confused Mood Description: Labile and Nervous Affect Description: Labile Patient Cognition Impaired: Yes Ability to Follow Directions: Poor Speech Pattern: Slurred Memory Description: Recent Impaired, Working Impaired and Semantic Impaired Delusions: Not Present Thought Content: positive for Perseveration Depressive Symptoms: Increased Anxiety Abnormal Motor Activity Signs and Symptoms: Agitation, Hyperactivity and Restlessness Judgement: Poor Medications Medications Current Medications Generic Name Dose Route Start Last Admin Trade Name Freq PRN Reason Stop Dose Admin Aspirin 81 mg 11/02/20 09:00 11/02/20 09:04 Aspirin 81 Mg Tab.Chew PO 81 mg DAILY GRAYSON Administration Atorvastatin Calcium 40 mg 11/01/20 22:55 11/02/20 00:09 Atorvastatin Calcium 40 Mg Tablet PO 40 mg BEDTIME GRAYSON Administration Bupropion HCl 300 mg 11/02/20 09:00 11/02/20 08:10 Bupropion Hcl Xl 300 Mg Tab.Er.24h PO 300 mg DAILY GRAYSON Administration Clonidine HCl 0.1 mg 11/01/20 22:55 11/02/20 10:43 Clonidine Hcl 0.1 Mg Tablet PO 0.1 mg TID PRN Administration Withdrawal Protocol Enoxaparin Sodium 30 mg 11/02/20 00:00 11/02/20 01:40 Enoxaparin Sodium 30 Mg/0.3 Ml Syringe SUBCUT 30 mg Q24H G[facility]YSON Administration Famotidine 10 mg 11/01/20 22:55 11/02/20 08:10 Famotidine 20 Mg Tablet PO 10 mg BID GRAYSON Administration Hydroxyzine HCl 25 mg 11/01/20 22:55 11/02/20 08:10 Hydroxyzine Hcl 25 Mg Tablet PO 25 mg Q6H PRN Administration anxiety/restlessness Vancomycin HCl 750 mg/ Sodium 265 mls @ 265 mls/hr 11/01/20 23:00 11/02/20 05:52 Chloride IV Infused Q48H G[facility]ON Infusion Piperacillin Sod/Tazobactam 50 mls @ 100 mls/hr 11/01/20 22:00 11/02/20 05:51 Sod 2.25 gm/ Sodium Chloride IV Not Given Q6H [facility] Sodium Chloride 1,000 mls @ 100 mls/hr 11/01/20 22:55 11/02/20 07:56 Ns IVCONT 0 mls/hr .Q10H [facility] Infusion Naltrexone HCl 50 mg 11/01/20 22:55 11/02/20 01:41 Naltrexone Hcl 50 Mg Tablet PO Not Given BEDTIME GRAYSON Omeprazole 20 mg 11/02/20 06:30 11/02/20 06:59 Omeprazole 20 Mg Capsule. PO 20 mg DAILY@0630 [facility] Administration Paroxetine HCl 20 mg 11/02/20 09:00 11/02/20 08:10 Paroxetine Hcl 20 Mg Tablet PO 20 mg DAILY [facility] Administration Pharmacy Consult 1 each 11/01/20 14:40 Consult Rx Perform Med Rec MISCELLANE ONCE PRN Consult order Salmeterol Xinafoate 1 puff 11/01/20 22:55 11/02/20 08:42 Salmeterol Xinafoate 50 Mcg Blst.W.Dev INHALE Not Given BID GRAYSON Sodium Chloride 3 ml 11/02/20 00:00 11/02/20 08:10 0.9 % Sodium Chloride Flush 3 Ml Syringe IVFLUSH Not Given QSHIFT [facility] Allergies Allergies Allergy/AdvReac Type Severity Reaction Status Date / Time No Known Allergies Allergy Verified 11/01/20 14:40 Assessment & Plan Assessment & Plan (1) Polysubstance abuse: Status: Acute Code(s): F19.10 - Other psychoactive substance abuse, uncomplicated (2) Cocaine abuse: Status: Acute Code(s): F14.10 - Cocaine abuse, uncomplicated (3) Embolic stroke: Status: Acute Code(s): I63.9 - Cerebral infarction, unspecified (4) Malnourished: Qualifiers: Malnutrition type: protein-calorie malnutrition Protein-calorie malnutrition severity: severe Qualified Code(s): E43 - Unspecified severe protein-calorie malnutrition Status: Acute Code(s): E46 - Unspecified protein-calorie malnutrition Greater than 50% of the session was spent on counseling and/or coordination of care Case DW Dr Pritchard. Would assume polysubstance WD (most likely Opioids/Cocaine/?ETOH). Treat with combo of Vistaril/ Clonidine/Lorazepam. Pt already on Naltrexone. may use neuroleptics such as PRN Haldol/OLanzapine for behavior control if absolutely needed Balance with need for clinical clarity given CVA work up. Collect collateral if possible. Pt is vulnerable adult. When medically stabilized, will need BHN/CARE assessment prior to DC/transfer Patient educated on: substance abuse (unable) Informed Consent: does not understand
[2020-11-02] MEDS: LORazepam 2 MG/ML VIAL 0.5 MG IVPUSH ×3 (11:54→19:14)
[2020-11-02] MEDS: cloNIDine HCL 0.1 MG TABLET 0.2 MG PO ×2 (14:38→20:58)
--- NOTE | 2020-11-02 16:21 | P.PNIM_ITS ---
Subjective Subjective Date of Service: 11/02/20 Interval History: Very anxious and restless Poor historian and generally uncooperative but does endorse cocaine + heroin abuse [last on per psychiatrist]. Denies EtOH Unable to obtain full ROS but I did get a hold of her sister Maddie Leach who was the one who called the authorities Pt uses cocaine, heroin and also drinks and smokes heavily Review of Systems Review of Systems: Yes Unobtainable due to mental status Physical Exam Vital Signs: Vital Signs: Last Vital Signs Temp 98.1 F 11/02/20 11:22 Pulse 99 11/02/20 11:22 Resp 18 11/02/20 11:22 BP 180/114 H 11/02/20 11:22 Pulse Ox 97 11/02/20 11:22 Body Mass Index 13.7 Gen: restless, disoriented, muscle wasting HEENT: sclera anicteric, R ear laceration repaired by ED Neck: supple Lungs: clear to auscultation bilaterally Heart: regular rate and rhythm, no murmurs Abd: soft, non-tender, non-distended Ext: no edema Skin: multiple track sasha Neuro: word finding difficulty, moving all extremities equally, uncooperative with neuro exam Psych: impaired insight, disoriented Objective Data Current Medications Generic Name Dose Route Start Last Admin Trade Name Solisq PRN Reason Stop Dose Admin Aspirin 81 mg 11/02/20 09:00 11/02/20 09:04 Aspirin 81 Mg Tab.Chew PO 81 mg DAILY GRAYSON Administration Atorvastatin Calcium 40 mg 11/01/20 22:55 11/02/20 00:09 Atorvastatin Calcium 40 Mg Tablet PO 40 mg BEDTIME G[facility]YSON Administration Bupropion HCl 300 mg 11/02/20 09:00 11/02/20 08:10 Bupropion Hcl Xl 300 Mg Tab.Er.24h PO 300 mg DAILY GRAYSON Administration Clonidine HCl 0.2 mg 11/02/20 15:00 11/02/20 14:38 Clonidine Hcl 0.1 Mg Tablet PO 0.2 mg TID GRAYSON Administration Protocol Enoxaparin Sodium 30 mg 11/02/20 00:00 11/02/20 01:40 Enoxaparin Sodium 30 Mg/0.3 Ml Syringe SUBCUT 30 mg Q24H [facility] Administration Famotidine 10 mg 11/01/20 22:55 11/02/20 08:10 Famotidine 20 Mg Tablet PO 10 mg BID GRAYSON Administration Hydroxyzine HCl 25 mg 11/02/20 12:00 11/02/20 11:52 Hydroxyzine Hcl 25 Mg Tablet PO 25 mg Q6H [facility] Administration Vancomycin HCl 750 mg/ Sodium 265 mls @ 265 mls/hr 11/01/20 23:00 11/02/20 05:52 Chloride IV Infused Q48H [facility] Infusion Piperacillin Sod/Tazobactam 50 mls @ 100 mls/hr 11/01/20 22:00 11/02/20 16:06 Sod 2.25 gm/ Sodium Chloride IV Infused Q6H [facility] Infusion Sodium Chloride 1,000 mls @ 100 mls/hr 11/01/20 22:55 11/02/20 16:10 Ns IVCONT 100 mls/hr .Q10H [facility] Administration Lorazepam 0.5 mg 11/02/20 11:21 11/02/20 15:02 Lorazepam 2 Mg/Ml Vial IVPUSH 0.5 mg Q4H PRN Administration agitation/anxiety Naltrexone HCl 50 mg 11/01/20 22:55 11/02/20 01:41 Naltrexone Hcl 50 Mg Tablet PO Not Given BEDTIME GRAYSON Omeprazole 20 mg 11/02/20 06:30 11/02/20 06:59 Omeprazole 20 Mg Capsule.Dr PO 20 mg DAILY@0630 G[facility]ON Administration Paroxetine HCl 20 mg 11/02/20 09:00 11/02/20 08:10 Paroxetine Hcl 20 Mg Tablet PO 20 mg DAILY GRAYSON Administration Pharmacy Consult 1 each 11/01/20 14:40 Consult Rx Perform Med Rec MISCELLANE ONCE PRN Consult order Salmeterol Xinafoate 1 puff 11/01/20 22:55 11/02/20 08:42 Salmeterol Xinafoate 50 Mcg Blst.W.Dev INHALE Not Given BID [facility] Sodium Chloride 3 ml 11/02/20 00:00 11/02/20 15:03 0.9 % Sodium Chloride Flush 3 Ml Syringe IVFLUSH 3 ml QSHIFT G[facility]ON Administration Labs CBC & Chem 7: 11/02/20 09:14 11/02/20 09:14 Labs: Laboratory Results - last 24 hr 11/01/20 11/01/20 11/02/20 17:57 17:57 00:10 WBC RBC Hgb Hct MCV MCH MCHC RDW Plt Count MPV Immature Gran % (Auto) Neut % (Auto) Lymph % (Auto) [place] % (Auto) Eos % (Auto) Baso % (Auto) Lymph # (Auto) [place] # (Auto) Eos # (Auto) Baso # (Auto) Abs Immat Gran (auto) Absolute Neuts (auto) Absolute Nucleated RBC Nucleated RBC % (auto) VBG pH 7.53 H VBG pCO2 30 VBG pO2 73 VBG HCO3 25 VBG O2 Saturation 95.2 VBG Base Excess 2.4 Sodium Potassium Chloride Carbon Dioxide Anion Gap BUN Creatinine Estim Creat Clear Calc Estimated GFR Random Glucose Calcium Total Bilirubin AST ALT Alkaline Phosphatase Total Creatine Kinase Troponin I High Sens C-Reactive Protein Total Protein Albumin Urine Color YELLOW Urine Appearance CLEAR Urine pH 6.5 Ur Specific [place] 1.020 Urine Protein TRACE Urine Glucose (UA) NEG Urine Ketones NEG Urine Blood 1+ H Urine Nitrite NEG Ur Leukocyte Esterase NEG Urine RBC 5-9 H Urine WBC 0-2 Ur Squamous Epith Cells 2+ Urine Bacteria NONE Urine Opiates Screen POSITIVE H Ur Barbiturates Screen Not Detected Ur Phencyclidine Scrn Not Detected Ur Amphetamines Screen Not Detected U Benzodiazepines Scrn POSITIVE H Urine Cocaine Screen POSITIVE H U Marijuana (THC) Screen Not Detected 11/02/20 11/02/20 11/02/20 00:10 09:14 09:14 WBC 11.4 H RBC 3.96 L Hgb 10.7 L Hct 33.8 L MCV 85.4 MCH 27.0 MCHC 31.7 RDW 14.3 Plt Count 282 MPV 10.8 Immature Gran % (Auto) 0.4 Neut % (Auto) 80.4 H Lymph % (Auto) 10.1 L [place] % (Auto) 5.8 Eos % (Auto) 2.8 Baso % (Auto) 0.5 Lymph # (Auto) 1.2 [place] # (Auto) 0.7 Eos # (Auto) 0.3 Baso # (Auto) 0.1 Abs Immat Gran (auto) 0.04 H Absolute Neuts (auto) 9.2 H Absolute Nucleated RBC 0.000 Nucleated RBC % (auto) 0.0 VBG pH VBG pCO2 VBG pO2 VBG HCO3 VBG O2 Saturation VBG Base Excess Sodium 136 Potassium 4.0 Chloride 107 Carbon Dioxide 18 L Anion Gap 15 BUN 22 H Creatinine 1.11 Estim Creat Clear Calc 32.4 Estimated GFR 50 Random Glucose 100 Calcium 7.9 L D Total Bilirubin 0.3 AST 28 ALT 18 Alkaline Phosphatase 82 Total Creatine Kinase 284 H Troponin I High Sens 47.4 H C-Reactive Protein 5.58 H Total Protein 6.0 L Albumin 3.3 L Urine Color Urine Appearance Urine pH Ur Specific [place] Urine Protein Urine Glucose (UA) Urine Ketones Urine Blood Urine Nitrite Ur Leukocyte Esterase Urine RBC Urine WBC Ur Squamous Epith Cells Urine Bacteria Urine Opiates Screen Ur Barbiturates Screen Ur Phencyclidine Scrn Ur Amphetamines Screen U Benzodiazepines Scrn Urine Cocaine Screen U Marijuana (THC) Screen Impressions Brain MRI 11/01/20 16:10 IMPRESSION: Numerous foci of acute infarction seen within multiple vascular territories most concerning for an embolic etiology. The greatest burden of infarcts are seen in the left MCA vascular territory. Chronic infarcts are seen within the bilateral occipital lobes. There is no hemorrhage or mass effect. Assessment and Plan (1) Acute CVA (cerebrovascular accident): Status: Acute (2) Polysubstance abuse: Status: Acute Assessment and Plan: 60yo F with hx cocaine + heroin abuse found with AMS by her family, found to be aphasic admitted for multiple embolic CVA # embolic CVA - suspect due to septic emboli from IDU vs cocaine-induced vasoconstriction - Neuro consult; recommended CTA head/neck + contrast MRI but hold off for now as pt is too agitated - empiric vanco + pip/jesus d#2, follow BCx - TTE + carotid Doppler pending - ASA + statin - PT/OT when cooperative # polysubstance abuse # opioid withdrawal - Psych consulted. pt on naltrexone; will not give opioid substitution therapy. will treat with standing clonidine + hydroxyzine, prn lorazepam - did get 1 dose IM olanzapine; QTc was normal at 364 - CARE team consult when more cooperative - screen HBV/HCV/HIV - start empiric high-dose thiamine for alcohol abuse - nicotine patch # toxic/metabolic encephalopathy - due to substaince abuse/withdrawal # leukocytosis - empiric ABX as above. not septic # severe protein/calorie malnutrition - supplements # mood disorder - bupropion + paroxetine # VTE ppx - LMWH # dispo - will need STR, sister will file Sec 35, will consult CM
[2020-11-02] MEDS: cloNIDine HCL 0.2 MG TABLET PO (16:46)
[2020-11-02] MEDS: Nicotine 14 MG PATCH.TD24 TRANSDERMA (17:25)
[2020-11-02] MEDS: Thiamine HCL 250 MG in 0.9 % Sodium Chloride 100 ML 205 MG IV (17:25)
[2020-11-02] MEDS: Naltrexone HCl 50 MG TABLET PO (20:57)
[2020-11-02] MEDS: Multivitamin TABLET 1 TAB PO (20:59)
[2020-11-02] MEDS: LORazepam 2 MG/ML VIAL 1 MG IVPUSH (22:26)
[2020-11-03] VITALS (8 sets, daily range): BP systolic 155–175; BP diastolic 74–100; PULSE 57–102; RESP 18–20; TEMP 36.3–37.2; O2SAT 95–100
[2020-11-03] MEDS: hydrOXYzine HCL 25 MG TABLET PO ×2 (00:26→21:07)
[2020-11-03] MEDS: Enoxaparin Sodium 30 MG/0.3 ML SYRINGE SUBCUT (00:27)
[2020-11-03] MEDS: LORazepam 2 MG/ML VIAL 0.5 MG IVPUSH ×4 (02:02→14:46)
[2020-11-03] MEDS: Piperacillin Sodium/Tazobactam 2.25 GM in 0.9 % Sodium Chloride 50 ML IV ×4 (03:38→21:00)
[2020-11-03] MEDS: Salmeterol Xinafoate 50 MCG BLST.W.DEV 1 PUFF INHALE ×2 (07:37→19:59)
[2020-11-03] MEDS: 0.9 % Sodium Chloride Flush 3 ML SYRINGE IVFLUSH ×2 (07:46→21:07)
[2020-11-03] MEDS: Nicotine 14 MG PATCH.TD24 TRANSDERMA (07:48)
[2020-11-03 08:06] LABS: Cholesterol 135 mg/dL; HDL Cholesterol 66 mg/dL; LDL Cholesterol Calculated 59 mg/dl; Triglycerides 54 mg/dL
[2020-11-03 08:51] LABS: Anion Gap 15 (12-20); Blood Urea Nitrogen 21 mg/dL (9-16); Calcium 8.5 mg/dL (8.4-10.2); Carbon Dioxide 20 mmol/L (22-29); Chloride 109 mmol/L (96-108); Creatinine Clr Calc Pharmacy 37.1; Estimated Glomerular Filt Rate 58; Glucose Random 94 mg/dL (60-115); Sodium 140 mmol/L (135-145)
[2020-11-03 09:02] LABS: Reflex LDLD? No
[2020-11-03] MEDS: vancomycin HCL 750 MG in 0.9 % Sodium Chloride 250 ML 265 MG IV (12:26)
--- NOTE | 2020-11-03 13:04 | HO.PM.IMPN ---
Subjective Subjective Date of Service: 11/03/20 Interval History: Not able to give history due to word-finding difficulties but generally less agitated Review of Systems Review of Systems: Yes Unobtainable due to mental condition and Unobtainable due to mental status Physical Exam Vital Signs: Vital Signs: Last Vital Signs Temp 98.7 F 11/03/20 11:58 Pulse 57 11/03/20 11:58 Resp 20 11/03/20 11:58 BP 155/88 H 11/03/20 11:58 Pulse Ox 95 11/03/20 11:58 Body Mass Index 13.7 Gen: disheveled, disoriented, bitemporal wasting HEENT: sclera anicteric, moist mucus membranes Neck: supple Lungs: clear to auscultation bilaterally Heart: regular rate and rhythm, no murmurs Abd: soft, non-tender, non-distended Ext: no edema Skin: multiple needle track randall Neuro: disoriented, word-finding difficulties, moving all extremities Psych: impaired insight Objective Data Current Medications Generic Name Dose Route Start Last Admin Trade Name Augustine PRN Reason Stop Dose Admin Aspirin 81 mg 11/02/20 09:00 11/03/20 09:18 Aspirin 81 Mg Tab.Chew PO Not Given DAILY GRAYSON Atorvastatin Calcium 40 mg 11/01/20 22:55 11/02/20 20:59 Atorvastatin Calcium 40 Mg Tablet PO 40 mg BEDTIME GRAYSON Administration Bupropion HCl 300 mg 11/02/20 09:00 11/03/20 09:18 Bupropion Hcl Xl 300 Mg Tab.Er.24h PO Not Given DAILY GRAYSON Clonidine HCl 0.2 mg 11/02/20 15:00 11/03/20 09:18 Clonidine Hcl 0.1 Mg Tablet PO Not Given TID [facility] Protocol Enoxaparin Sodium 30 mg 11/02/20 00:00 11/03/20 00:27 Enoxaparin Sodium 30 Mg/0.3 Ml Syringe SUBCUT 30 mg Q24H GRAYSON Administration Famotidine 10 mg 11/01/20 22:55 11/03/20 09:18 Famotidine 20 Mg Tablet PO Not Given BID GRAYSON Hydroxyzine HCl 25 mg 11/02/20 12:00 11/03/20 12:44 Hydroxyzine Hcl 25 Mg Tablet PO Not Given Q6H GRAYSON Piperacillin Sod/Tazobactam 50 mls @ 100 mls/hr 11/01/20 22:00 11/03/20 12:41 Sod 2.25 gm/ Sodium Chloride IV Infused Q6H GRAYSON Infusion Sodium Chloride 1,000 mls @ 100 mls/hr 11/01/20 22:55 11/03/20 05:07 Ns IVCONT Not Given .Q10H GRAYSON Thiamine HCl 250 mg/ Sodium 102.5 mls @ 205 mls/hr 11/02/20 17:00 11/02/20 18:09 Chloride IV 11/04/20 17:29 Infused Q24H GRAYSON Infusion Vancomycin HCl 750 mg/ Sodium 265 mls @ 265 mls/hr 11/03/20 12:00 11/03/20 12:26 Chloride IV 265 mls/hr Q24H GRAYSON Administration Lorazepam 0.5 mg 11/02/20 11:21 11/03/20 10:15 Lorazepam 2 Mg/Ml Vial IVPUSH 0.5 mg Q4H PRN Administration agitation/anxiety Multivitamins/Vitamin C 1 tab 11/02/20 21:00 11/02/20 20:59 Multivitamin Tablet PO 1 tab BEDTIME GRAYSON Administration Naltrexone HCl 50 mg 11/01/20 22:55 11/02/20 20:57 Naltrexone Hcl 50 Mg Tablet PO 50 mg BEDTIME GRAYSON Administration Nicotine 14 mg 11/02/20 16:45 11/03/20 07:48 Nicotine 14 Mg Patch.Td24 TRANSDERMA 14 mg DAILY GRAYSON Administration Omeprazole 20 mg 11/02/20 06:30 11/03/20 06:03 Omeprazole 20 Mg Capsule.Dr PO Not Given DAILY@0630 [facility] Paroxetine HCl 20 mg 11/02/20 09:00 11/03/20 09:19 Paroxetine Hcl 20 Mg Tablet PO Not Given DAILY [facility] Pharmacy Consult 1 each 11/01/20 14:40 Consult Rx Perform Med Rec MISCELLANE ONCE PRN Consult order Salmeterol Xinafoate 1 puff 11/01/20 22:55 11/03/20 07:37 Salmeterol Xinafoate 50 Mcg Blst.W.Dev INHALE 1 puff BID GRAYSON Administration Sodium Chloride 3 ml 11/02/20 00:00 11/03/20 07:46 0.9 % Sodium Chloride Flush 3 Ml Syringe IVFLUSH 3 ml QSHIFT GRAYSON Administration Thiamine HCl 100 mg 11/06/20 09:00 Thiamine Hcl 100 Mg Tablet PO DAILY GRAYSON Labs CBC & Chem 7: 11/02/20 09:14 11/03/20 07:06 Labs: Laboratory Results - last 24 hr 11/03/20 11/03/20 07:06 07:06 Sodium 140 Potassium 4.0 Chloride 109 H Carbon Dioxide 20 L Anion Gap 15 BUN 21 H Creatinine 0.97 Estim Creat Clear Calc 37.1 Estimated GFR 58 Random Glucose 94 Calcium 8.5 D Prealbumin 12.0 L Triglycerides 54 Cholesterol 135 LDL Cholesterol, Calc 59 HDL Cholesterol 66 Microbiology Microbiology Results: Microbiology 11/01/20 15:51 Blood - Venous Blood Culture - Preliminary No growth after 24 hours. 11/01/20 15:18 Blood - Venous Blood Culture - Preliminary No growth after 24 hours. Assessment and Plan (1) Acute CVA (cerebrovascular accident): Status: Acute (2) Polysubstance abuse: Status: Acute Assessment and Plan: hospital d#3 60yo F with hx cocaine + heroin abuse found with AMS by her family, found to be aphasic admitted for multiple embolic CVA # embolic CVA - suspect due to septic emboli from IDU vs cocaine-induced vasoconstriction - Neuro consulted; recommended CTA head/neck + contrast MRI but holding pending improvement in pt's ability to cooperative with exam - empiric vanco + pip/jesus d#3, follow BCx - TTE + carotid Doppler pending - ASA + statin - PT/OT when cooperative # polysubstance abuse # opioid withdrawal - Psych consulted. pt on naltrexone; will not give opioid substitution therapy. giving standing clonidine + hydroxyzine, prn lorazepam - did get 1 dose IM olanzapine; QTc was normal at 364 - CARE team consult when cooperative - screen HBV/HCV/HIV - start empiric high-dose thiamine for alcohol abuse; level pending - nicotine patch # toxic/metabolic encephalopathy - due to substaince abuse/withdrawal # leukocytosis - empiric ABX as above. not septic # severe protein/calorie malnutrition - supplements # mood disorder - continue home bupropion + paroxetine # VTE ppx - LMWH # dispo - will need STR, sister will file Sec 35, CM notified
--- NOTE | 2020-11-03 14:28 | MHC.CM.PN ---
CM attempted to meet with pt multiple times throughout the weekend, pt unable to provide meaningful history. CM contacted pts sister, Maddie ([phone]) who reported the pt lives alone and has no in home services. She reports the pt was in an inpt substance abuse program in July and then was supposed to be attending IOP via [facility] but she does not think she was doing so. Maddie is unsure who the pts PCP is but she believes the pt goes to [facility] in [place]. Maddie reports she and the pts sons are interested in filing for a section 35 when pt returns to the community. Information provided on the steps to completing the 35. Maddie reports the MD last night told her the pt would be in the hospital for 6-8 weeks. SHEY explained this likely included the time the pt may be at STR. SHEY also explained family should wait until the pt is being discharged home to file the section 35. CM discussed the possible STR placements and explained the process. DC plan pending PT and psych evals pt will likely need SNF placement
[2020-11-03] MEDS: 0.9 % Sodium Chloride 1,000 ML 100 ML IVCONT (14:46)
[2020-11-03] MEDS: cloNIDine HCL 0.1 MG TABLET 0.2 MG PO ×2 (14:46→21:04)
[2020-11-03] MEDS: Thiamine HCL 250 MG in 0.9 % Sodium Chloride 100 ML 205 MG IV (17:44)
[2020-11-03] MEDS: Multivitamin TABLET 1 TAB PO (21:06)
[2020-11-03] MEDS: Atorvastatin Calcium 40 MG TABLET PO (21:06)
[2020-11-03] MEDS: Famotidine 20 MG TABLET 10 MG PO (21:06)
[2020-11-03] MEDS: Naltrexone HCl 50 MG TABLET PO (21:11)
[2020-11-04] VITALS (12 sets, daily range): BP systolic 134–167; BP diastolic 80–95; PULSE 60–77; RESP 18–24; TEMP 36.3–36.7; O2SAT 97–100; BMI 13.7
--- NOTE | 2020-11-04 | CT_ITS ---
EXAMINATION: CT ANGIOGRAM HEAD CT ANGIOGRAM NECK CLINICAL INFORMATION: Stroke. IVDU. COMPARISON: Brain MRI from 11/01/2020 and 11/04/2020. TECHNIQUE: Initial noncontrast chief operator lock tender imaging of the head and neck was performed. Noncontrast head CT was also performed. Test bolus sequences followed by intravenous administration 80 mL of Omnipaque 350. Helical imaging was performed in the axial plane from the aortic arch to the skull vertex. Delayed postcontrast imaging of the head was also performed. The data was processed at the staff technologist's workstation for generation of MIP sequences. Angled MIPs and volume rendered reformatted images were also generated at an offline 3D workstation. Stenoses are assessed in accordance with NASCET criteria unless otherwise indicated. DLP: 2188 mGy-cm This CT examination was performed using dose optimization techniques as appropriate, variously including the following: *Automated exposure control. *Adjustment of mA and/or kV according to patient size (this includes techniques or standardized protocols for targeted exams where dose is matched to indication/reason for exam; i.e. extremities or head). *Use of iterative reconstruction technique. FINDINGS: CT Head: Multiple regions of lost moe-white matter differentiation predominantly within the left parietal lobe, left lentiform nucleus/insula, and lateral aspect of the left cerebellar hemisphere, correlating with acute infarcts demonstrated on previous brain MRI. Multiple additional smaller acute infarcts within the right cerebellar hemisphere, midbrain, and bilateral frontoparietal lobes are better demonstrated on MRI. There are also chronic regions of encephalomalacia within the bilateral occipitoparietal lobes with associated volume loss. There is no evidence of acute intracranial hemorrhage. The ventricles are normal in size and configuration. No evidence for obstructive hydrocephalus. No abnormal mass effect or midline shift. No extra-axial fluid collections. There is a 0.3 cm focus of enhancement along the posterior aspect of the left parietal lobe (image 46/79 of series 17). No additional pathologic intra-axial enhancement. No acute soft tissue or osseous abnormalities. Mild mucosal thickening of the paranasal sinuses. The mastoid air cells and middle ear cavities remain well aerated. CT Neck: The thyroid gland and remaining cervical soft tissues are within normal limits. Straightening of the normal cervical lordosis. Mild degenerative anterolisthesis of C3 on C4. Otherwise, there is anatomic alignment of the vertebral bodies and posterior elements. No evidence of acute fracture or subluxation. The vertebral body heights are maintained. Advanced degenerative disc disease from C4-C7 with disc-osteophyte complexes. Prominent facet and uncovertebral joint arthropathy leads to osseous encroachment on the neural foramina from C2-T1. CT Upper Chest: Moderate centrilobular emphysema. The visualized upper mediastinum is within normal limits. Neck CTA: Aortic Arch: Normal contour and caliber. Two vessel branching pattern of the arch with left common carotid artery arising from the brachiocephalic trunk. Great Vessel Origins: No significant stenosis of the branch origins. Right Common Carotid Artery: Normal opacification without focal stenosis or occlusion. Cervical Right Internal Carotid Artery: Mild calcific atherosclerotic disease of the carotid bulb and proximal internal carotid artery without flow-limiting stenosis. Left Common Carotid Artery: Normal opacification without focal stenosis or occlusion. Cervical Left Internal Carotid Artery: Mild calcific atherosclerotic disease of the carotid bulb and proximal internal carotid artery without flow-limiting stenosis. Cervical Right Vertebral Artery: Co-dominant. Normal opacification without focal stenosis or occlusion. Cervical Left Vertebral Artery: Co-dominant. Normal opacification without focal stenosis or occlusion. Brain CTA: Intracranial Internal Carotid Arteries: Normal contrast opacification of the petrous, cavernous, paraophthalmic, and supraclinoid segments of the internal carotid arteries without focal stenosis. Right Anterior Cerebral Artery: The A1 segment is mildly diminutive. Normal opacification of the distal segments of the MOUNA. Left Anterior Cerebral Artery: Normal A1 segment. Normal opacification of the distal segments of the MOUNA. Anterior Communicating Artery: Normal. Right Middle Cerebral Artery: Normal opacification of the M1 segment of the MCA without focal stenosis or occlusion. Normal arborization of the distal segments. Left Middle Cerebral Artery: Normal opacification of the proximal and mid aspects of the M1 segment of the MCA. There is occlusion of the M1-M2 junction. The distal branches of the MCA or at least partially reconstituted but remain attenuated relative to the contralateral side. Right Vertebral Artery: Normal opacification of the V4 segment. Normal opacification of the proximal segments of the posterior inferior cerebellar artery. Left Vertebral Artery: Normal opacification of the V4 segment. Normal opacification of the proximal segments of the posterior inferior cerebellar artery. Basilar Artery: Normal opacification without focal stenosis or occlusion. Normal appearance of the proximal superior cerebellar arteries. Right Posterior Cerebral Artery: The P1 segment is diminutive. origin of the [employer] with robust opacification of the posterior communicating artery. Normal opacification of the distal segments of the [employer]. Left Posterior Cerebral Artery: The P1 segment is diminutive. origin of the [employer] with robust opacification of the posterior communicating artery. Normal opacification of the distal segments of the [employer]. Normal opacification of the superior sagittal, straight, transverse, and sigmoid sinuses. CT/CT angio head neck IMPRESSION: 1. Multifocal supratentorial and infratentorial acute infarcts, most notably within the left parietal lobe, left lentiform nucleus/insula, and left cerebellar hemisphere. No evidence of associated acute intracranial hemorrhage. Chronic encephalomalacia of the bilateral occipitoparietal lobes. 2. CTA head and neck with occlusion at the left M1-M2 junction. At least partial reconstitution of the distal MCA branches likely secondary to collateralization. No evidence of additional proximal occlusion or flow-limiting stenosis. 3. Tiny focus of enhancement along the posterior left parietal lobe (commonly seen with laminar necrosis in the setting of subacute infarcts). However, given the patient's history of IVDU, follow-up in 2-4 weeks is recommended to exclude other causes of abnormal enhancement. 4. Moderate multilevel degenerative spondyloarthropathy of the cervical spine. 5. Emphysema. This critical result was discussed with Dr. Gonzales at 14:50 on 11/04/2020 and it was ascertained that the content and urgency of the report was understood at the time of direct communication.
--- NOTE | 2020-11-04 | US_ITS ---
EXAMINATION: US EXTRACRANIAL CAROTID DUPLEX, BILATERAL CLINICAL INFORMATION: Embolic stroke COMPARISON: CTA performed same day TECHNIQUE: Real-time ultrasound and Doppler techniques (integrating B-mode 2-D vascular images, Doppler spectral analysis and color-flow Doppler imaging) were utilized to interrogate the extracranial carotid arteries, the vertebral arteries and proximal subclavian arteries bilaterally. The degree of stenosis is determined by criteria similar to NASCET. FINDINGS: Right Side: 1. There is atherosclerotic plaque seen in the bifurcation/proximal ICA region. 2. The common carotid artery PSV proximally is 49.1 cm/s and distally 42.6 cm/s. 3. The proximal internal carotid artery velocities are 32.9 cm/s systolic and 10.2 cm/s diastolic. 4. The proximal external carotid artery PSV is 33.8 cm/s. 5. The vertebral artery shows antegrade flow. 6. The subclavian artery was unable to be seen. Left Side: 1. There is atherosclerotic plaque seen in the bifurcation/proximal ICA region. 2. The common carotid artery PSV proximally is 46.4 cm/s and distally 47.1 cm/s. 3. The proximal internal carotid artery velocities are 34.0 cm/s systolic and 11.7 cm/s diastolic. 4. The proximal external carotid artery PSV is 45.2 cm/s. 5. The vertebral artery shows antegrade flow. 6. The subclavian artery waveforms are normal. US/US carotid duplex BI IMPRESSION: 1. RIGHT: Minimal, non-hemodynamically significant stenosis of the proximal right internal carotid artery corresponding to a 0-49% stenosis by velocity criteria. 2. LEFT: Minimal, non-hemodynamically significant stenosis of the proximal left internal carotid artery corresponding to a 0-49% stenosis by velocity criteria. 3. The right subclavian artery was unable to be seen as the patient was moving throughout the scan and unable to participate. The CTA performed the same day indicates the subclavian artery is patent.
--- NOTE | 2020-11-04 | MR_ITS ---
MRI BRAIN WITH IV CONTRAST CLINICAL INFORMATION: Neuro consult suggested. Question left parietal lesion. COMPARISON: MRI brain 11/01/2020. TECHNIQUE: Postcontrast imaging of the brain is obtained following the administration of 5 mL of Gadavist intravenous contrast without complication. FINDINGS: A small curvilinear focus of enhancement within the left frontal lobe on axial image 18 of series 5 and coronal image 17 of series 4 could reflect blood brain barrier breakdown from subacute infarction or a small developmental venous anomaly. There is no additional pathologic enhancement intracranially. Of note, the previously noted areas of restricted diffusion do not exhibit enhancement. MR/MR head/brain w con IMPRESSION: A small curvilinear focus of enhancement within the left frontal lobe on axial image 18 of series 5 and coronal image 17 of series 4 could reflect blood brain barrier breakdown from subacute infarction or a small developmental venous anomaly.
[2020-11-04] MEDS: Enoxaparin Sodium 30 MG/0.3 ML SYRINGE SUBCUT (00:01)
[2020-11-04] MEDS: LORazepam 2 MG/ML VIAL 0.5 MG IVPUSH (00:03)
[2020-11-04] MEDS: 0.9 % Sodium Chloride 1,000 ML 100 ML IVCONT ×2 (00:08→09:17)
[2020-11-04] MEDS: Piperacillin Sodium/Tazobactam 2.25 GM in 0.9 % Sodium Chloride 50 ML IV ×4 (03:07→22:05)
[2020-11-04 03:31] LABS: HBc Num1 0.09 S/CO (0.00-0.79); HBsAGNum1 0.19 S/CO (0.00-0.99); HIV AB/AG Nonreactive (Nonreactive); HIV Num 1 0.08 S/CO (0.00-0.99); Hepatitis B Core Antibody Nonreactive (Nonreactive); Hepatitis B Surface Antigen Negative (Negative)
[2020-11-04 03:44] LABS: HBS Num1 0.74 mIU/mL (0-7.99); ~HepC Num1 0.18 S/CO (0.00-0.79); ~Hepatitis B Surface Antibody NONREACTIVE (Nonreactive); ~Hepatitis C Antibody Nonreactive (Nonreactive)
[2020-11-04] MEDS: hydrOXYzine HCL 25 MG TABLET PO ×3 (05:26→18:55)
[2020-11-04] MEDS: Omeprazole 20 MG CAPSULE.DR PO (05:26)
[2020-11-04 06:11] LABS: MANUAL DIFF FLAG NO
[2020-11-04 06:22] LABS: Basophils Absolute Auto 0.1 X10*3/uL (0.0-0.2); Basophils Percent Auto 0.9 % (0-2); Eosinophils Absolute Auto 0.3 X10*3/uL (0.0-0.4); Eosinophils Percent Auto 4.2 % (0-4); Hematocrit 38.2 % (37-47); Hemoglobin 12.3 g/dl (12.0-16.0); Imm Gran Abs Auto 0.02 X10*3/uL (0.00-0.03); Imm Gran Pct Auto 0.3 % (0.0-0.4); Lymphocytes Absolute Auto 1.2 X10*3/uL (1.2-4.9); Lymphocytes Percent Auto 19.1 % (20-40); Mean Corpuscular HGB Conc 32.2 g/dl (31.0-35.0); Mean Corpuscular Hemoglobin 27.2 pg (27.0-33.0); Mean Corpuscular Volume 84.5 fL (80-98); Mean Platelet Volume 10.8 fL (9.4-12.3); Monocytes Absolute Auto 0.4 X10*3/uL (0.1-1.2); Monocytes Percent Auto 6.8 % (2-11); Neutrophils Absolute Auto 4.5 X10*3/uL (2.0-8.3); Neutrophils Percent Auto 68.7 % (45-73); Platelet Count 403 X10*3/uL (160-400); Red Blood Count 4.52 X10*6/uL (4.20-5.50); Red Cell Distribution Width 14.7 % (11.0-16.0); White Blood Count 6.5 X10*3/uL (4.8-10.8)
[2020-11-04 06:52] LABS: Anion Gap 14 (12-20); Blood Urea Nitrogen 24 mg/dL (9-16); Carbon Dioxide 17 mmol/L (22-29); Chloride 115 mmol/L (96-108); Creatinine Clr Calc Pharmacy 37.8; Estimated Glomerular Filt Rate 60; Glucose Random 102 mg/dL (60-115); Potassium 4.6 mmol/l (3.3-5.1); Sodium 141 mmol/L (135-145)
[2020-11-04 07:02] LABS: Procalcitonin 0.05 ng/mL
[2020-11-04 08:09] LABS: Erythrocyte Sedimentation Rate 6 MM/HR (0-20)
[2020-11-04] MEDS: Nicotine 14 MG PATCH.TD24 TRANSDERMA (08:25)
[2020-11-04] MEDS: 0.9 % Sodium Chloride Flush 3 ML SYRINGE IVFLUSH ×3 (08:25→22:05)
[2020-11-04] MEDS: Famotidine 20 MG TABLET 10 MG PO ×2 (08:27→22:08)
[2020-11-04] MEDS: cloNIDine HCL 0.1 MG TABLET 0.2 MG PO ×3 (08:27→22:06)
[2020-11-04] MEDS: Aspirin 81 MG TAB.CHEW PO (08:28)
[2020-11-04] MEDS: buPROPion HCl XL 300 MG TAB.ER.24H PO (08:28)
[2020-11-04] MEDS: PARoxetine HCL 20 MG TABLET PO (08:28)
--- NOTE | 2020-11-04 09:49 | MHC.RECOVSUP ---
Recovery Support note: Patient is a 60 year old Liberian speaking female who presented to [facility] ED due to altered mental status and was medically admitted. When this public relations writer entered the room, patient appeared to be sleeping however awoke easily when her name was called. Patient was willing to discuss her substance use however she was minimally engaged in the discussion. Patient reports using cocaine. Patient acknowledges that the cocaine use is detrimental to her health and that she should stop. Patient also acknowledges that there may be additional mixed into her cocaine. Patient reports she plans to stop using entirely and that she feels that she is capable of doing so. Patient reports having family who can support her in her recovery. This public relations writer offered patient recovery resources and patient declined. If patient is interested in discussing her substance use and recovery further as she gets closer to discharge, this public relations writer is available. Discussed case with patient's RN, Indu.
[2020-11-04] MEDS: iohexoL 350 MG/ML 100 ML INFUS..BTL 80 ML IV (11:08)
--- NOTE | 2020-11-04 11:48 | P.PNIM_ITS ---
Subjective Subjective Date of Service: 11/04/20 Interval History: Patient seen and examined at bedside. She is still confused, less agitated, appears comfortable, has no complaints today. Awaiting section 35. Physical Exam Vital Signs: Vital Signs: Last Vital Signs Temp 97.4 F 11/04/20 08:00 Pulse 62 11/04/20 08:34 Resp 18 11/04/20 08:00 BP 164/95 H 11/04/20 08:34 Pulse Ox 100 11/04/20 08:00 Body Mass Index 13.7 Const: Other: Sleeping in bed but arousable, minimal agitation. General: cooperative and no acute distress Resp: Effort & Inspection: normal respiratory effort Auscultation: clear to auscultation bilaterally Cardio: Rate: regular rate Rhythm: regular rhythm GI: Palpation (GI): Soft to palpation Auscultation: normal bowel sounds Skin: General skin exam: no rashes or lesions noted Neuro: Other: Disoriented, word-finding difficulties, moving all extremities Extrem: General: Yes normal to inspection and Yes no pedal edema Objective Data Current Medications Generic Name Dose Route Start Last Admin Trade Name Solisq PRN Reason Stop Dose Admin Aspirin 81 mg 11/02/20 09:00 11/04/20 08:28 Aspirin 81 Mg Tab.Chew PO 81 mg DAILY GRAYSON Administration Atorvastatin Calcium 40 mg 11/01/20 22:55 11/03/20 21:06 Atorvastatin Calcium 40 Mg Tablet PO 40 mg BEDTIME GRAYSNO Administration Bupropion HCl 300 mg 11/02/20 09:00 11/04/20 08:28 Bupropion Hcl Xl 300 Mg Tab.Er.24h PO 300 mg DAILY GRAYSON Administration Clonidine HCl 0.2 mg 11/02/20 15:00 11/04/20 08:27 Clonidine Hcl 0.1 Mg Tablet PO 0.2 mg TID GRAYSON Administration Protocol Enoxaparin Sodium 30 mg 11/02/20 00:00 11/04/20 00:01 Enoxaparin Sodium 30 Mg/0.3 Ml Syringe SUBCUT 30 mg Q24H GRAYSON Administration Famotidine 10 mg 11/01/20 22:55 11/04/20 08:27 Famotidine 20 Mg Tablet PO 10 mg BID GRAYSON Administration Hydroxyzine HCl 25 mg 11/02/20 12:00 11/04/20 05:26 Hydroxyzine Hcl 25 Mg Tablet PO 25 mg Q6H GRAYSON Administration Piperacillin Sod/Tazobactam 50 mls @ 100 mls/hr 11/01/20 22:00 11/04/20 10:10 Sod 2.25 gm/ Sodium Chloride IV Infused Q6H GRAYSON Infusion Sodium Chloride 1,000 mls @ 100 mls/hr 11/01/20 22:55 11/04/20 09:17 Ns IVCONT 100 mls/hr .Q10H GRAYSON Administration Thiamine HCl 250 mg/ Sodium 102.5 mls @ 205 mls/hr 11/02/20 17:00 11/03/20 18:17 Chloride IV 11/04/20 17:29 Infused Q24H GRAYSON Infusion Vancomycin HCl 750 mg/ Sodium 265 mls @ 265 mls/hr 11/03/20 12:00 11/03/20 13:33 Chloride IV Infused Q24H GRAYSON Infusion Lorazepam 0.5 mg 11/02/20 11:21 11/04/20 00:03 Lorazepam 2 Mg/Ml Vial IVPUSH 0.5 mg Q4H PRN Administration agitation/anxiety Multivitamins/Vitamin C 1 tab 11/02/20 21:00 11/03/20 21:06 Multivitamin Tablet PO 1 tab BEDTIME GRAYSON Administration Naltrexone HCl 50 mg 11/01/20 22:55 11/03/20 21:11 Naltrexone Hcl 50 Mg Tablet PO 50 mg BEDTIME GRAYSON Administration Nicotine 14 mg 11/02/20 16:45 11/04/20 08:25 Nicotine 14 Mg Patch.Td24 TRANSDERMA 14 mg DAILY GRAYSON Administration Omeprazole 20 mg 11/02/20 06:30 11/04/20 05:26 Omeprazole 20 Mg Capsule.Dr PO 20 mg DAILY@0630 GRAYSON Administration Paroxetine HCl 20 mg 11/02/20 09:00 11/04/20 08:28 Paroxetine Hcl 20 Mg Tablet PO 20 mg DAILY GRAYSON Administration Pharmacy Consult 1 each 11/01/20 14:40 Consult Rx Perform Med Rec MISCELLANE ONCE PRN Consult order Salmeterol Xinafoate 1 puff 11/01/20 22:55 11/04/20 07:42 Salmeterol Xinafoate 50 Mcg Blst.W.Dev INHALE Not Given BID GRAYSON Sodium Chloride 3 ml 11/02/20 00:00 11/04/20 08:25 0.9 % Sodium Chloride Flush 3 Ml Syringe IVFLUSH 3 ml QSHIFT GRAYSON Administration Thiamine HCl 100 mg 11/06/20 09:00 Thiamine Hcl 100 Mg Tablet PO DAILY [facility] Labs CBC & Chem 7: 11/04/20 05:37 11/04/20 05:37 Microbiology Microbiology Results: Microbiology 11/01/20 15:51 Blood - Venous Blood Culture - Preliminary No growth after 48 hours. 11/01/20 15:18 Blood - Venous Blood Culture - Preliminary No growth after 48 hours. Assessment and Plan (1) Low BMI: Status: Acute (2) Polysubstance abuse: Status: Acute (3) Embolic stroke: Status: Acute Assessment and Plan: hospital d#4 60yo F with hx cocaine + heroin abuse found with AMS by her family, found to be aphasic admitted for multiple embolic CVA # embolic CVA - suspect due to septic emboli from IDU vs cocaine-induced vasoconstriction, Afib less likely - Neuro consulted; recommended CTA head/neck + contrast MRI which have been ordered for today 11/04 - Continue empiric vanco + pip/jesus d#3, follow BCx - TTE + carotid Doppler pending - continue ASA + statin - PT/OT when cooperative # polysubstance abuse # opioid withdrawal - Psych consulted. pt on naltrexone; will not give opioid substitution therapy. - Continue standing clonidine + hydroxyzine, prn lorazepam - CARE team consult when acute issues of agitation, more controlled - HBV/HCV/HIV- negative - Continue empiric high-dose thiamine for alcohol abuse; level pending - nicotine patch # toxic/metabolic encephalopathy - due to substaince abuse/withdrawal as well as embolic stroke - will continue to monitor # leukocytosis- resolved - empiric ABX as above. not septic # severe protein/calorie malnutrition - supplements # mood disorder - continue home bupropion + paroxetine # VTE ppx - LMWH # dispo - will need STR, sister will file Sec 35, CM informed
[2020-11-04] MEDS: vancomycin HCL 750 MG in 0.9 % Sodium Chloride 250 ML 265 MG IV (12:41)
--- NOTE | 2020-11-04 13:16 | MHC.CLN ---
PT IS SEVERELY MALNOURISHED CURRENTLY RECEIVING REGULAR DIET WITH 8OZ ENSURE TID TO INCREASE KCALS SEE ALSO CLINICAL NUTRITION ASSESSMENT
--- NOTE | 2020-11-04 16:03 | MHC.STROKE ---
Addendum entered by Dyan Gillespie RN 11/06/20 18:00: PATIENT MORE COOPERATIVE WITH REHAB THERAPY. RECOMMENDING SPEECH THERAPY FOR APHASIA. Original Note: ARRIVED VIA EMS 11/01/20 AT 1433, APHASIA AND AMS, DIRECT TO CT AT 1442, NIHSS = 5, EXCLUDED FROM TPA DUE TO UNKNOWN ONSET DATE AND TIME (? 10/30/20). SISTER DISCOVERED SYMPTOMS 11/01/20. MRI + FOR ?EMBOLIC LEFT MCA STROKES. PASSED SWALLOW SCREEN PRIOR TO PO. I WAS UNABLE TO PROVIDE STROKE EDUCATION UNTIL TODAY. I REVIEWED HER DIAGNOSIS AND SHE DID ASK ME QUESTIONS. SHE IS A FORMER NURSE. I EXPLAINED HOW HER RISK FACTORS COULD HAVE CAUSED HER STROKE. I SHOWED HER A SCREENSHOT OF THE MRI IMAGES AND REVIEWED THE STROKE BOOKLET AND LET HER KNOW WHAT MY ROLE IS. I PROVIDED SUPPORT. SHE WAS SLIGHTLY DROWSY AND REQUIRES REINFORCEMENT. REHAB IS RECOMMENDING STR, CASE TEAM AND PSYCH IS FOLLOWING HER. ECHO STILL PENDING. ALL STROKE MEASURES MET. I WILL CONTINUE TO FOLLOW.
[2020-11-04] MEDS: Thiamine HCL 250 MG in 0.9 % Sodium Chloride 100 ML 205 MG IV (18:52)
[2020-11-04] MEDS: Salmeterol Xinafoate 50 MCG BLST.W.DEV 1 PUFF INHALE (20:00)
[2020-11-04] MEDS: Atorvastatin Calcium 40 MG TABLET PO (22:03)
[2020-11-04] MEDS: Multivitamin TABLET 1 TAB PO (22:09)
[2020-11-04] MEDS: Naltrexone HCl 50 MG TABLET PO (22:16)
[2020-11-05] VITALS (8 sets, daily range): BP systolic 115–162; BP diastolic 72–96; PULSE 66–89; RESP 18–20; TEMP 36.4–36.8; O2SAT 91–100
[2020-11-05] MEDS: Enoxaparin Sodium 30 MG/0.3 ML SYRINGE SUBCUT (02:46)
[2020-11-05] MEDS: hydrOXYzine HCL 25 MG TABLET PO ×4 (02:47→18:37)
[2020-11-05] MEDS: Piperacillin Sodium/Tazobactam 2.25 GM in 0.9 % Sodium Chloride 50 ML IV ×4 (06:05→21:56)
[2020-11-05] MEDS: Omeprazole 20 MG CAPSULE.DR PO (06:06)
[2020-11-05] MEDS: Salmeterol Xinafoate 50 MCG BLST.W.DEV 1 PUFF INHALE (07:17)
[2020-11-05] MEDS: buPROPion HCl XL 300 MG TAB.ER.24H PO (07:44)
[2020-11-05] MEDS: Famotidine 20 MG TABLET 10 MG PO ×2 (07:44→20:44)
[2020-11-05] MEDS: Aspirin 81 MG TAB.CHEW PO (07:44)
[2020-11-05] MEDS: PARoxetine HCL 20 MG TABLET PO (07:44)
[2020-11-05] MEDS: Nicotine 14 MG PATCH.TD24 TRANSDERMA (07:45)
[2020-11-05] MEDS: LORazepam 2 MG/ML VIAL 0.5 MG IVPUSH ×2 (07:45→18:40)
[2020-11-05] MEDS: cloNIDine HCL 0.1 MG TABLET 0.2 MG PO ×3 (07:45→20:46)
[2020-11-05] MEDS: 0.9 % Sodium Chloride Flush 3 ML SYRINGE IVFLUSH ×2 (09:07→16:52)
[2020-11-05 11:50] LABS: Vancomycin Trough 7.7 mcg/mL (10.0-20.0)
--- NOTE | 2020-11-05 11:54 | HO.PM.IMPN ---
Subjective Subjective Date of Service: 11/05/20 Interval History: pt seen and examined at bedside. She is sleeping comfortably. Per nurse, was agitated in AM Neurologic Neurologic: Reports confusion Psychiatric Psychiatric: Reports confusion Physical Exam Vital Signs: Vital Signs: Last Vital Signs Temp 97.6 F 11/05/20 08:00 Pulse 77 11/05/20 08:00 Resp 20 11/05/20 08:00 BP 162/96 H 11/05/20 08:00 Pulse Ox 100 11/05/20 08:00 Body Mass Index 13.7 Const: Other: Sleeping in bed but arousable, agitation General: confusion Orientation/consciousness: oriented to person and confusion Eyes: General: appearance normal, both eyes and all related structures Pupils: Equal, round and reactive pupils present Resp: Effort & Inspection: normal respiratory effort Auscultation: clear to auscultation bilaterally Cardio: Other: Sleeping in bed but arousable, no agitation Rate: regular rate Rhythm: regular rhythm GI: Palpation (GI): Soft to palpation Auscultation: normal bowel sounds Skin: Other: Skin appears dry, dehydrated Track randall on arms bilaterally General skin exam: no rashes or lesions noted and dry skin Neuro: Other: Disoriented, word-finding difficulties, moving all extremities General: oriented to person, confusion and Unable to assess gait Cranial nerves: Yes Equal, round and reactive pupils present Cognition (Neuro): abnormal cognition Speech: Expressive aphasia present Gait exam (Neuro): Unable to assess gait Motor exam (neuro): Other motor observations present (unable to assess strength as pt not following commands) Extrem: General: Yes normal to inspection and Yes no pedal edema Objective Data Current Medications Generic Name Dose Route Start Last Admin Trade Name Augustine PRN Reason Stop Dose Admin Aspirin 81 mg 11/02/20 09:00 11/05/20 07:44 Aspirin 81 Mg Tab.Chew PO 81 mg DAILY GRAYSON Administration Atorvastatin Calcium 40 mg 11/01/20 22:55 11/04/20 22:03 Atorvastatin Calcium 40 Mg Tablet PO 40 mg BEDTIME GRAYSON Administration Bupropion HCl 300 mg 11/02/20 09:00 11/05/20 07:44 Bupropion Hcl Xl 300 Mg Tab.Er.24h PO 300 mg DAILY GRAYSON Administration Clonidine HCl 0.2 mg 11/02/20 15:00 11/05/20 07:45 Clonidine Hcl 0.1 Mg Tablet PO 0.2 mg TID GRAYSON Administration Protocol Enoxaparin Sodium 30 mg 11/02/20 00:00 11/05/20 02:46 Enoxaparin Sodium 30 Mg/0.3 Ml Syringe SUBCUT 30 mg Q24H GRAYSON Administration Famotidine 10 mg 11/01/20 22:55 11/05/20 07:44 Famotidine 20 Mg Tablet PO 10 mg BID GRAYSON Administration Hydroxyzine HCl 25 mg 11/02/20 12:00 11/05/20 11:04 Hydroxyzine Hcl 25 Mg Tablet PO 25 mg Q6H GRAYSON Administration Piperacillin Sod/Tazobactam 50 mls @ 100 mls/hr 11/01/20 22:00 11/05/20 11:33 Sod 2.25 gm/ Sodium Chloride IV Infused Q6H GRAYSON Infusion Vancomycin HCl 750 mg/ Sodium 265 mls @ 265 mls/hr 11/03/20 12:00 11/04/20 14:03 Chloride IV Infused Q24H GRAYSON Infusion Lorazepam 0.5 mg 11/02/20 11:21 11/05/20 07:45 Lorazepam 2 Mg/Ml Vial IVPUSH 0.5 mg Q4H PRN Administration agitation/anxiety Multivitamins/Vitamin C 1 tab 11/02/20 21:00 11/04/20 22:09 Multivitamin Tablet PO 1 tab BEDTIME GRAYSON Administration Naltrexone HCl 50 mg 11/01/20 22:55 11/04/20 22:16 Naltrexone Hcl 50 Mg Tablet PO 50 mg BEDTIME GRAYSON Administration Nicotine 14 mg 11/02/20 16:45 11/05/20 07:45 Nicotine 14 Mg Patch.Td24 TRANSDERMA 14 mg DAILY GRAYSON Administration Omeprazole 20 mg 11/02/20 06:30 11/05/20 06:06 Omeprazole 20 Mg Capsule.Dr PO 20 mg DAILY@0630 GRAYSON Administration Paroxetine HCl 20 mg 11/02/20 09:00 11/05/20 07:44 Paroxetine Hcl 20 Mg Tablet PO 20 mg DAILY GRAYSON Administration Pharmacy Consult 1 each 11/01/20 14:40 Consult Rx Perform Med Rec MISCELLANE ONCE PRN Consult order Salmeterol Xinafoate 1 puff 11/01/20 22:55 11/05/20 07:17 Salmeterol Xinafoate 50 Mcg Blst.W.Dev INHALE 1 puff BID GRAYSON Administration Sodium Chloride 3 ml 11/02/20 00:00 11/05/20 09:07 0.9 % Sodium Chloride Flush 3 Ml Syringe IVFLUSH 3 ml QSHIFT GRAYSON Administration Thiamine HCl 100 mg 11/05/20 11:45 Thiamine Hcl 100 Mg Tablet PO DAILY GRAYSON Labs CBC & Chem 7: 11/04/20 05:37 11/04/20 05:37 Microbiology Microbiology Results: Microbiology 11/01/20 15:51 Blood - Venous Blood Culture - Preliminary No growth after 48 hours. 11/01/20 15:18 Blood - Venous Blood Culture - Preliminary No growth after 48 hours. Assessment and Plan (1) Low BMI: Status: Acute (2) Polysubstance abuse: Status: Acute (3) Embolic stroke: Status: Acute Assessment and Plan: hospital d#4 60yo F with hx cocaine + heroin abuse found with AMS by her family, found to be aphasic admitted for multiple embolic CVA # embolic CVA - unclear etiology at this time - Possibly 2/2 A.fib vs septic emboli from IDU vs cocaine-induced vasoconstriction - Pt underwent CTA and MRI of the brain with contrast. - CTA head and neck showed left M1-M2 junction occlusion, - Pt's cultures are negative to date, with no fever, no leukocytosis - Carotid dopplers -ve for high stenosis Plan: - Will Continue empiric vanco + pip/jesus d#4 - TTE done today, cardiology does not recommend MARTHA given pt's risk - Will await final blood cultures, if negative, will stop IV abx. - Will most likely need event monitor recommended by cardiology - continue ASA + statin - PT/OT - Pt will be discharged on section 35 to rehab # polysubstance abuse # opioid withdrawal - Psych consulted. pt on naltrexone; will not give opioid substitution therapy. - Continue standing clonidine + hydroxyzine, prn lorazepam - CARE team consult when acute issues of agitation, more controlled - HBV/HCV/HIV- negative - Continue thiamine and folic acid daily - nicotine patch # toxic/metabolic encephalopathy - due to substaince abuse/withdrawal as well as embolic stroke - will continue to monitor # leukocytosis- resolved - empiric ABX as above. not septic # severe protein/calorie malnutrition - supplements # mood disorder - continue home bupropion + paroxetine # VTE ppx - LMWH # dispo - will need STR, sister will file Sec 35, CM informed
[2020-11-05] MEDS: Thiamine HCL 100 MG TABLET PO (13:16)
[2020-11-05] MEDS: vancomycin HCL 1,000 MG in 0.9 % Sodium Chloride 250 ML 270 MG IV (13:16)
--- NOTE | 2020-11-05 14:15 | P.CONCA_ITS ---
History of Present Illness History of Present Illness Date of Service: 11/05/20 Requesting physician: Adelaide Gonzales Chief complaint: Embolic Stroke Narrative: 60-year-old female with substance abuse including cocaine and heroin abuse who is presenting with difficulty speaking and embolic CVA. We have been contacted to rule out endocarditis. Her speech has improved. She is not complaining of any arm or leg weakness. She is complaining of right foot pain where there is a small abscess from IV injections. She is denying chest pain or shortness of breath. Blood cultures were done which were negative. MRI of the brain performed on 11/01/2020 showed a small curvilinear focus of enhancement within the left frontal lobe. This could reflect blood brain barrier breakdown from subacute infarction or small developmental venous anomaly. CT angio head and neck showed multifocal supratentorial and infratentorial acute infarcts most notably within the left parietal lobe, left lentiform nucleus/insula and left cerebellar hemisphere. Occlusion of the left M1-M2 junction. Review of Systems Review of Systems: Right foot pain Yes all other systems are reviewed and are negative FOR[facility]LY [facility] Past Medical History Medical History Polysubstance abuse Unknown family medical history Surgical History Surgical History Surgical history unknown Social History Social History (Updated 11/01/20 @ 14:49 by Liberty Kamara DO) Smoking Status: Current every day smoker Use of substances other than those prescribed or required for medical reasons: Yes Currently Displaying Signs/Symptoms of Drug Intoxication Withdrawal: Yes Advance Directives: No Advance Directives Information Provided: No Do you have thoughts of harming others: None Do you have a plan to hurt others: No Plan service: No Current occupational status: unemployed Meds Allergies Allergy/AdvReac Type Severity Reaction Status Date / Time No Known Allergies Allergy Verified 11/01/20 14:40 Home Medications Medication Instructions Recorded Confirmed Type bupropion HCl [Wellbutrin XL] 300 mg PO DAILY 11/01/20 11/01/20 History famotidine 20 mg PO BID 11/01/20 11/01/20 History naltrexone 50 mg PO BEDTIME 11/01/20 11/01/20 History pantoprazole [Protonix] 40 mg PO DAILY 11/01/20 11/01/20 History paroxetine HCl [Paxil] 20 mg PO DAILY 11/01/20 11/01/20 History salmeterol [Serevent Diskus] 1 inh INHALATION BID 11/01/20 11/01/20 History Physical Exam Vital Signs: Vital Signs: Last Vital Signs Temp 97.9 F 11/05/20 12:00 Pulse 66 11/05/20 12:00 Resp 20 11/05/20 12:00 BP 158/86 H 11/05/20 12:00 Pulse Ox 100 11/05/20 12:00 Body Mass Index 13.7 GENERAL APPEARANCE: Thin/cachectic looking. HEENT: unremarkable. HEAD: normocephalic, atraumatic. NECK/THYROID: no carotid bruit, no jugular venous distention. SKIN: Right foot small area of abscess/cellulitis. HEART: no murmurs, regular rate and rhythm, S1, S2 normal. LUNGS: clear to auscultation bilaterally. ABDOMEN: normal, bowel sounds present, soft, nontender, nondistended. EXTREMITIES: no clubbing, cyanosis, or edema. PERIPHERAL PULSES: equal. NEUROLOGIC: nonfocal, alert and oriented. PSYCH: mood/affect full range. Results Labs and Meds Result diagrams: 11/04/20 05:37 11/04/20 05:37 Lab results: Laboratory Results - last 24 hr 11/05/20 11:02 Vancomycin Trough 7.7 L Assessment and Plan (1) Polysubstance abuse: Status: Acute (2) Acute CVA (cerebrovascular accident): Status: Acute (3) Cocaine abuse: Status: Acute 60-year-old female with polysubstance abuse who is presenting with confusion and speech issues. She has improved at this point. Her imaging has shown evidence of acute CVA. We have been asked to assess for endocarditis. Her blood cultures are at this point are negative. I think transthoracic echocardiography is a good starting point for her. If her blood cultures continues to stay negative then I think the likelihood that this is related to endocarditis is low. With poly substance abuse including cocaine use, atrial fibrillation and other arrhythmia or possible and I think doing a cardiac event monitor will be helpful. She has a small area of infection in the right foot which she was injecting. Once her IV antibiotics. I think probably she should stay on Augmentin or doxycycline for treatment of right foot infection. Thank you for allowing me to participate in the care of your patient. Please feel free to contact me if you have any questions.
[2020-11-05] MEDS: Atorvastatin Calcium 40 MG TABLET PO (20:44)
[2020-11-05] MEDS: Multivitamin TABLET 1 TAB PO (20:44)
[2020-11-05] MEDS: Naltrexone HCl 50 MG TABLET PO (20:45)
--- NOTE | 2020-11-05 22:55 | CA_ITS ---
Transthoracic Echocardiogram Patient (Last, First, Middle): Danette Chappell, Gender: Female Date of : 1960 Age: 60 Procedure Date: 11/05/2020 Procedure Type: Transthoracic Echocardiogram Location: [facility] [place] Height: 167.64 cm Weight: 38.56 kg BSA: 1.39 m2 Heart Rate: bpm BP: 175 / 98 mmHg Cloth Doubling Machine Operator: Ethan MD: Adelaide Gonzales MD Symptoms: embolic stroke Conclusions: - Normal left ventricular size, thickness, systolic function, and wall motion. The visually estimated ejection fraction is between 60-65%. - Elevated filling pressures. - Normal right ventricular cavity size and systolic function. - There is mild anterior and posterior mitral leaflet thickening. There is no mitral valve stenosis. The posterior mitral valve leaflet is mildly restricted with posteriorly directed moderate mitral valve regurgitation. - Normal right atrial pressure. Moderate pulmonary hypertension is present. Findings Left Ventricle Normal left ventricular size, thickness, systolic function, and wall motion. The visually estimated ejection fraction is between 60-65%. Abnormal diastolic function is noted. Spectral Doppler is indicative of a pseudonormal filling pattern. Elevated filling pressures. Right Ventricle Normal right ventricular cavity size and systolic function. Atria The left atrium was not well visualized. Aortic Valve There is mild thickening of the aortic valve. There is no aortic valve stenosis. There is trace (trivial) aortic valve regurgitation. Mitral Valve There is mild anterior and posterior mitral leaflet thickening. There is no mitral valve stenosis. The posterior mitral valve leaflet is mildly restricted with posteriorly directed moderate mitral valve regurgitation. Pulmonic Valve Normal pulmonic valve structure and function. There is no pulmonic valve regurgitation. Tricuspid Valve Normal tricuspid valve structure and function. There is trace tricuspid valve regurgitation. Normal right atrial pressure. Moderate pulmonary hypertension is present. Great Vessels All visible segments of the aorta are normal in size. The visualized portions of the pulmonary artery and branches are normal. Venous The inferior vena cava is normal in size and collapses greater than 50% with inspiration. Pericardium/Pleural There is no evidence of pericardial effusion. Prior Study Comparison No prior study available for comparison. Measurements 2D Linear Measurements IVSd: 0.58 0.6-0.9/0.6-1.0 cm LVIDd: 4.42 3.9-5.3/4.2-5.9 cm LVIDd Index: 3.18 2.4-3.2/2.2-3.1 cm/m2 LVIDs: 3.02 2.0-3.6 cm LVPWd: 0.76 0.7-1.1 cm Ao Root: 2.80 2.1-3.5 cm LA Diam: 3.30 2.7-3.8/3.0-4.0 cm LAIDs Index: 2.37 1.5-2.3 cm/m2 LV Mass: 108.84 67-162/88-224 g LV Mass Index: 78.30 43-95/49-115 g/m2 LVOT Diam: 1.60 3.0+(-)1.3 cm Mitral Valve MV Pk E: 1.46 MV PK A: 1.30 MV Decel Time: 246.00 E/A: 1.10 E'Lateral: 9.25 E'Medial: 9.14 E/E' Med: 16.00 E/E' Lat: 15.80 PHT: 72.00 MVA PHT: 3.06 Decel [place]: 5.95 LVOT LVOT Diam: 1.60 LVOT Area: 2.01 Diastolic Function MV Pk E: 1.46 MV Pk A: 1.30 E/A: 1.10 E'Medial: 9.14 E/E' Med: 16.00 E' Laterial: 9.25 E/E' Lat: 15.80 Tricuspid Valve TR Pk Sanya: 3.26 TR Pk Grad: 43.00 RA Press: 8.00 RVSP: 51.00 Great Vessels Aorta Ao Root-2D: 2.80 2.0-3.7 cm Ao Asc: 3.00 2.1-3.4 cm Updated in Other Vendor System with Status of Final Prosper Jj MD electronically signed on 11/05/2020 3:01:20 PM with status of Final
[2020-11-06] VITALS (10 sets, daily range): BP systolic 120–139; BP diastolic 74–90; PULSE 64–105; RESP 18–20; TEMP 36.4–36.6; O2SAT 95–100
[2020-11-06] MEDS: 0.9 % Sodium Chloride Flush 3 ML SYRINGE IVFLUSH ×4 (00:05→20:40)
[2020-11-06] MEDS: Enoxaparin Sodium 30 MG/0.3 ML SYRINGE SUBCUT (00:07)
[2020-11-06] MEDS: hydrOXYzine HCL 25 MG TABLET PO ×4 (00:07→17:07)
[2020-11-06] MEDS: Omeprazole 20 MG CAPSULE.DR PO (05:35)
[2020-11-06] MEDS: Piperacillin Sodium/Tazobactam 2.25 GM in 0.9 % Sodium Chloride 50 ML IV ×4 (05:35→20:39)
[2020-11-06] MEDS: Salmeterol Xinafoate 50 MCG BLST.W.DEV 1 PUFF INHALE (07:50)
[2020-11-06 09:00] LABS: MANUAL DIFF FLAG NO
[2020-11-06] MEDS: cloNIDine HCL 0.1 MG TABLET 0.2 MG PO ×3 (09:00→20:40)
[2020-11-06] MEDS: Nicotine 14 MG PATCH.TD24 TRANSDERMA (09:00)
[2020-11-06] MEDS: LORazepam 2 MG/ML VIAL 0.5 MG IVPUSH ×3 (09:00→17:57)
[2020-11-06] MEDS: PARoxetine HCL 20 MG TABLET PO (09:01)
[2020-11-06] MEDS: Famotidine 20 MG TABLET 10 MG PO ×2 (09:01→20:40)
[2020-11-06] MEDS: Thiamine HCL 100 MG TABLET PO (09:01)
[2020-11-06] MEDS: Aspirin 81 MG TAB.CHEW PO (09:01)
[2020-11-06] MEDS: buPROPion HCl XL 300 MG TAB.ER.24H PO (09:01)
[2020-11-06 09:33] LABS: Anion Gap 13 (12-20); Blood Urea Nitrogen 28 mg/dL (9-16); Calcium 8.2 mg/dL (8.4-10.2); Carbon Dioxide 21 mmol/L (22-29); Chloride 107 mmol/L (96-108); Creatinine Clr Calc Pharmacy 28.3; Estimated Glomerular Filt Rate 43; Glucose Random 85 mg/dL (60-115); Potassium 4.9 mmol/l (3.3-5.1); Sodium 136 mmol/L (135-145)
[2020-11-06 10:36] LABS: Basophils Absolute Auto 0.1 X10*3/uL (0.0-0.2); Eosinophils Absolute Auto 0.3 X10*3/uL (0.0-0.4); Hematocrit 32.7 % (37-47); Hemoglobin 10.4 g/dl (12.0-16.0); Imm Gran Abs Auto 0.02 X10*3/uL (0.00-0.03); Imm Gran Pct Auto 0.3 % (0.0-0.4); Lymphocytes Absolute Auto 1.4 X10*3/uL (1.2-4.9); Mean Corpuscular HGB Conc 31.8 g/dl (31.0-35.0); Mean Corpuscular Hemoglobin 27.2 pg (27.0-33.0); Mean Corpuscular Volume 85.4 fL (80-98); Mean Platelet Volume 10.8 fL (9.4-12.3); Monocytes Absolute Auto 0.6 X10*3/uL (0.1-1.2); Neutrophils Absolute Auto 3.9 X10*3/uL (2.0-8.3); Neutrophils Percent Auto 61.7 % (45-73); Platelet Count 388 X10*3/uL (160-400); Red Blood Count 3.83 X10*6/uL (4.20-5.50); Red Cell Distribution Width 15.4 % (11.0-16.0); White Blood Count 6.2 X10*3/uL (4.8-10.8)
--- NOTE | 2020-11-06 11:22 | MHC.CLN ---
F/U PO INTAKE 75-100% DIET RX: REGULAR-APPROPRIATE ENSURE TID IN PLACE TO INCREASE KCALS AND PROMOTE SLOW WT GAIN MONITOR WEIGHTS CLOSELY
[2020-11-06] MEDS: vancomycin HCL 1,000 MG in 0.9 % Sodium Chloride 250 ML 270 MG IV (12:07)
--- NOTE | 2020-11-06 14:25 | P.PNIM_ITS ---
Subjective Subjective Date of Service: 11/06/20 Interval History: pt seen and examined. She is awake, alert and oriented . She is sitting in bed, was just finishing with OT and did well. She has no chest pain, no shortness of breaht and no abdominal pain. Physical Exam Vital Signs: Vital Signs: Last Vital Signs Temp 97.6 F 11/06/20 11:27 Pulse 64 11/06/20 11:27 Resp 18 11/06/20 11:27 BP 127/90 H 11/06/20 11:27 Pulse Ox 99 11/06/20 11:27 Body Mass Index 13.7 Const: Other: alert, oriented, no agitation, directable, answers questions appropriately General: cooperative and no acute distress Orientation/co nsciousness: oriented to person, oriented to place and oriented to time Eyes: General: appearance normal, both eyes and all related structures Pupils: Equal, round and reactive pupils present Resp: Effort & Inspection: normal respiratory effort and able to speak in complete sentences Auscultation: clear to auscultation bilaterally Cardio: Rate: regular rate Rhythm: regular rhythm GI: Palpation (GI): Soft to palpation Auscultation: normal bowel sounds Neuro: Other: walking with no gait abnormality General: oriented to person, oriented to place, oriented to time, gait normal and tone normal Cranial nerves: Yes Equal, round and reactive pupils present Cognition (Neuro): normal cognition Extrem: General: Yes normal to inspection and Yes no pedal edema Objective Data Current Medications Generic Name Dose Route Start Last Admin Trade Name Solisq PRN Reason Stop Dose Admin Aspirin 81 mg 11/02/20 09:00 11/06/20 09:01 Aspirin 81 Mg Tab.Chew PO 81 mg DAILY GRAYSON Administration Atorvastatin Calcium 40 mg 11/01/20 22:55 11/05/20 20:44 Atorvastatin Calcium 40 Mg Tablet PO 40 mg BEDTIME GRAYSON Administration Bupropion HCl 300 mg 11/02/20 09:00 11/06/20 09:01 Bupropion Hcl Xl 300 Mg Tab.Er.24h PO 300 mg DAILY GRAYSON Administration Clonidine HCl 0.2 mg 11/02/20 15:00 11/06/20 09:00 Clonidine Hcl 0.1 Mg Tablet PO 0.2 mg TID GRAYSON Administration Protocol Enoxaparin Sodium 30 mg 11/02/20 00:00 11/06/20 00:07 Enoxaparin Sodium 30 Mg/0.3 Ml Syringe SUBCUT 30 mg Q24H GRAYSON Administration Famotidine 10 mg 11/01/20 22:55 11/06/20 09:01 Famotidine 20 Mg Tablet PO 10 mg BID GRAYSON Administration Hydroxyzine HCl 25 mg 11/02/20 12:00 11/06/20 12:07 Hydroxyzine Hcl 25 Mg Tablet PO 25 mg Q6H GRAYSON Administration Piperacillin Sod/Tazobactam 50 mls @ 100 mls/hr 11/01/20 22:00 11/06/20 09:30 Sod 2.25 gm/ Sodium Chloride IV Infused Q6H GRAYSON Infusion Vancomycin HCl 1,000 mg/ 270 mls @ 270 mls/hr 11/05/20 13:00 11/06/20 13:26 Sodium Chloride IV 270 mls/hr Q24H GRAYSON Infusion Lorazepam 0.5 mg 11/02/20 11:21 11/06/20 13:22 Lorazepam 2 Mg/Ml Vial IVPUSH 0.5 mg Q4H PRN Administration agitation/anxiety Multivitamins/Vitamin C 1 tab 11/02/20 21:00 11/05/20 20:44 Multivitamin Tablet PO 1 tab BEDTIME GRAYSON Administration Naltrexone HCl 50 mg 11/01/20 22:55 11/05/20 20:45 Naltrexone Hcl 50 Mg Tablet PO 50 mg BEDTIME GRAYSON Administration Nicotine 14 mg 11/02/20 16:45 11/06/20 09:00 Nicotine 14 Mg Patch.Td24 TRANSDERMA 14 mg DAILY GRAYSON Administration Omeprazole 20 mg 11/02/20 06:30 11/06/20 05:35 Omeprazole 20 Mg Capsule.Dr PO 20 mg DAILY@0630 GRAYSON Administration Paroxetine HCl 20 mg 11/02/20 09:00 11/06/20 09:01 Paroxetine Hcl 20 Mg Tablet PO 20 mg DAILY GRAYSON Administration Pharmacy Consult 1 each 11/01/20 14:40 Consult Rx Perform Med Rec MISCELLANE ONCE PRN Consult order Salmeterol Xinafoate 1 puff 11/01/20 22:55 11/06/20 07:50 Salmeterol Xinafoate 50 Mcg Blst.W.Dev INHALE 1 puff BID GRAYSON Administration Sodium Chloride 3 ml 11/02/20 00:00 11/06/20 08:59 0.9 % Sodium Chloride Flush 3 Ml Syringe IVFLUSH 3 ml QSHIFT GRAYSON Administration Thiamine HCl 100 mg 11/05/20 11:45 11/06/20 09:01 Thiamine Hcl 100 Mg Tablet PO 100 mg DAILY GRAYSON Administration Labs CBC & Chem 7: 11/06/20 08:40 11/06/20 08:40 Microbiology Microbiology Results: Microbiology 11/01/20 15:51 Blood - Venous Blood Culture - Preliminary No growth after 48 hours. 11/01/20 15:18 Blood - Venous Blood Culture - Preliminary No growth after 48 hours. Assessment and Plan (1) Embolic stroke: Status: Acute (2) Polysubstance abuse: Status: Acute Assessment and Plan: hospital d#5 60yo F with hx cocaine + heroin abuse found with AMS by her family, found to be aphasic admitted for multiple embolic CVA # embolic CVA - unclear etiology at this time - Possibly 2/2 A.fib vs septic emboli from IDU vs cocaine-induced vasoconstriction - CTA head and neck showed left M1-M2 junction occlusion, - Pt's cultures are negative to date, with no fever, no leukocytosis - Carotid Dopplers -ve for high stenosis Plan: - Will Continue empiric vanco + pip/jesus d#5 - TTE done today, cardiology does not recommend MARTHA given pt's risk - Will await final blood cultures, if negative, will stop IV abx. - Will most likely need event monitor recommended by cardiology - continue ASA + statin - PT/OT - Pt will be discharged on section 35 to rehab - Discussed with cardiology - TTE with be done, does not recommend MARTHA. as pt has been afebrile, no grwoth on cultures for 5 days, will dc ABx on discharge # polysubstance abuse # opioid withdrawal-improved - Psych consulted. pt on naltrexone; will not give opioid substitution therapy. - Continue standing clonidine + hydroxyzine, prn lorazepam - HBV/HCV/HIV- negative - Continue thiamine and folic acid daily - nicotine patch # toxic/metabolic encephalopathy- improved - due to substaince abuse/withdrawal as well as embolic stroke # leukocytosis- resolved - empiric ABX as above. not septic # severe protein/calorie malnutrition - supplements # mood disorder - continue home bupropion + paroxetine # VTE ppx - LMWH # dispo - will need STR, sister will file Sec 35, bed search in effect
--- NOTE | 2020-11-06 15:12 | MHC.CM.PN ---
physical thgerapy is receommending [facility] pt spoke with sistern who is agreeable..referrals made anticapate dc tomorrow
[2020-11-06] MEDS: Naltrexone HCl 50 MG TABLET PO (20:40)
[2020-11-06] MEDS: Multivitamin TABLET 1 TAB PO (20:40)
[2020-11-06] MEDS: Atorvastatin Calcium 40 MG TABLET PO (20:40)
[2020-11-07] VITALS (11 sets, daily range): BP systolic 101–141; BP diastolic 54–84; PULSE 69–84; RESP 17–20; TEMP 36.4–37; O2SAT 97–100
[2020-11-07] MEDS: LORazepam 2 MG/ML VIAL 0.5 MG IVPUSH ×2 (00:07→08:30)
[2020-11-07] MEDS: Enoxaparin Sodium 30 MG/0.3 ML SYRINGE SUBCUT (00:10)
[2020-11-07] MEDS: hydrOXYzine HCL 25 MG TABLET PO ×4 (00:10→17:28)
[2020-11-07] MEDS: Piperacillin Sodium/Tazobactam 2.25 GM in 0.9 % Sodium Chloride 50 ML IV ×4 (04:18→22:07)
[2020-11-07] MEDS: Omeprazole 20 MG CAPSULE.DR PO (05:49)
[2020-11-07] MEDS: Salmeterol Xinafoate 50 MCG BLST.W.DEV 1 PUFF INHALE (07:40)
[2020-11-07] MEDS: Nicotine 14 MG PATCH.TD24 TRANSDERMA (08:27)
[2020-11-07] MEDS: buPROPion HCl XL 300 MG TAB.ER.24H PO (08:28)
[2020-11-07] MEDS: Aspirin 81 MG TAB.CHEW PO (08:28)
[2020-11-07] MEDS: Famotidine 20 MG TABLET 10 MG PO ×2 (08:28→21:35)
[2020-11-07] MEDS: cloNIDine HCL 0.1 MG TABLET 0.2 MG PO ×3 (08:29→21:35)
[2020-11-07] MEDS: Thiamine HCL 100 MG TABLET PO (08:32)
[2020-11-07] MEDS: PARoxetine HCL 20 MG TABLET PO (08:34)
[2020-11-07] MEDS: 0.9 % Sodium Chloride Flush 3 ML SYRINGE IVFLUSH ×2 (11:00→15:38)
[2020-11-07] MEDS: LORazepam 0.5 MG TABLET 0.25 MG PO ×2 (12:18→17:58)
[2020-11-07] MEDS: vancomycin HCL 1,000 MG in 0.9 % Sodium Chloride 250 ML 270 MG IV (12:19)
--- NOTE | 2020-11-07 13:10 | HO.PM.IMPN ---
Subjective Subjective Date of Service: 11/07/20 Interval History: Pt seen and examined. She is awake, alert and oriented denies any complaint Neurologic Neurologic: Reports confusion Psychiatric Psychiatric: Reports confusion Physical Exam Vital Signs: Vital Signs: Last Vital Signs Temp 98.3 F 11/07/20 11:11 Pulse 72 11/07/20 11:11 Resp 18 11/07/20 11:11 BP 107/54 L 11/07/20 11:11 Pulse Ox 100 11/07/20 11:11 Body Mass Index 13.7 Const: Other: alert, oriented, no agitation, directable, answers questions appropriately General: cooperative, no acute distress and confusion Orientation/consciousness: oriented to person, oriented to place, oriented to time and confusion Eyes: General: appearance normal, both eyes and all related structures Pupils: Equal, round and reactive pupils present Resp: Effort & Inspection: normal respiratory effort and able to speak in complete sentences Auscultation: clear to auscultation bilaterally Cardio: Other: alert, oriented, no agitation, directable, answers questions appropriately Rate: regular rate Rhythm: regular rhythm GI: Palpation (GI): Soft to palpation Auscultation: normal bowel sounds Skin: Other: Skin appears dry, dehydrated Track randall on arms bilaterally General skin exam: no rashes or lesions noted and dry skin Neuro: Other: walking with no gait abnormality General: oriented to person, oriented to place, oriented to time, gait normal, tone normal, confusion and Unable to assess gait Cranial nerves: Yes Equal, round and reactive pupils present Cognition (Neuro): normal cognition and abnormal cognition Speech: Expressive aphasia present Gait exam (Neuro): Unable to assess gait Motor exam (neuro): Other motor observations present (unable to assess strength as pt not following commands) Extrem: General: Yes normal to inspection and Yes no pedal edema Objective Data Current Medications Generic Name Dose Route Start Last Admin Trade Name Freq PRN Reason Stop Dose Admin Aspirin 81 mg 11/02/20 09:00 11/07/20 08:28 Aspirin 81 Mg Tab.Chew PO 81 mg DAILY GRAYSON Administration Atorvastatin Calcium 40 mg 11/01/20 22:55 11/06/20 20:40 Atorvastatin Calcium 40 Mg Tablet PO 40 mg BEDTIME GRAYSON Administration Bupropion HCl 300 mg 11/02/20 09:00 11/07/20 08:28 Bupropion Hcl Xl 300 Mg Tab.Er.24h PO 300 mg DAILY GRAYSON Administration Clonidine HCl 0.2 mg 11/02/20 15:00 11/07/20 08:29 Clonidine Hcl 0.1 Mg Tablet PO 0.2 mg TID GRAYSON Administration Protocol Enoxaparin Sodium 30 mg 11/02/20 00:00 11/07/20 00:10 Enoxaparin Sodium 30 Mg/0.3 Ml Syringe SUBCUT 30 mg Q24H GRAYSON Administration Famotidine 10 mg 11/01/20 22:55 11/07/20 08:28 Famotidine 20 Mg Tablet PO 10 mg BID GRAYSON Administration Hydroxyzine HCl 25 mg 11/02/20 12:00 11/07/20 12:18 Hydroxyzine Hcl 25 Mg Tablet PO 25 mg Q6H GRAYSON Administration Piperacillin Sod/Tazobactam 50 mls @ 100 mls/hr 11/01/20 22:00 11/07/20 11:41 Sod 2.25 gm/ Sodium Chloride IV Infused Q6H GRAYSON Infusion Vancomycin HCl 1,000 mg/ 270 mls @ 270 mls/hr 11/05/20 13:00 11/07/20 12:19 Sodium Chloride IV 270 mls/hr Q24H GRAYSON Administration Lorazepam 0.25 mg 11/07/20 12:03 11/07/20 12:18 Lorazepam 0.5 Mg Tablet PO 0.25 mg Q6H PRN Administration anxiety/restlessness Multivitamins/Vitamin C 1 tab 11/02/20 21:00 11/06/20 20:40 Multivitamin Tablet PO 1 tab BEDTIME GRAYSON Administration Naltrexone HCl 50 mg 11/01/20 22:55 11/06/20 20:40 Naltrexone Hcl 50 Mg Tablet PO 50 mg BEDTIME GRAYSON Administration Nicotine 14 mg 11/02/20 16:45 11/07/20 08:27 Nicotine 14 Mg Patch.Td24 TRANSDERMA 14 mg DAILY GRAYSON Administration Omeprazole 20 mg 11/02/20 06:30 11/07/20 05:49 Omeprazole 20 Mg Capsule.Dr PO 20 mg DAILY@0630 GRAYSON Administration Paroxetine HCl 20 mg 11/02/20 09:00 11/07/20 08:34 Paroxetine Hcl 20 Mg Tablet PO 20 mg DAILY GRAYSON Administration Pharmacy Consult 1 each 11/01/20 14:40 Consult Rx Perform Med Rec MISCELLANE ONCE PRN Consult order Salmeterol Xinafoate 1 puff 11/01/20 22:55 11/07/20 07:40 Salmeterol Xinafoate 50 Mcg Blst.W.Dev INHALE 1 puff BID GRAYSON Administration Sodium Chloride 3 ml 11/02/20 00:00 11/07/20 11:00 0.9 % Sodium Chloride Flush 3 Ml Syringe IVFLUSH 3 ml QSHIFT GRAYSON Administration Thiamine HCl 100 mg 11/05/20 11:45 11/07/20 08:32 Thiamine Hcl 100 Mg Tablet PO 100 mg DAILY GRAYSON Administration Labs CBC & Chem 7: 11/06/20 08:40 11/06/20 08:40 Microbiology Microbiology Results: Microbiology 11/01/20 15:51 Blood - Venous Blood Culture - Final No growth after 5 days. 11/01/20 15:18 Blood - Venous Blood Culture - Final No growth after 5 days. Assessment and Plan (1) Embolic stroke: Status: Acute (2) Polysubstance abuse: Status: Acute Assessment and Plan: hospital d#5 60yo F with hx cocaine + heroin abuse found with AMS by her family, found to be aphasic admitted for multiple embolic CVA Embolic CVA - unclear etiology at this time - Possibly 2/2 A.fib vs septic emboli from IDU vs cocaine-induced vasoconstriction - CTA head and neck showed left M1-M2 junction occlusion, - Pt's cultures are negative to date, with no fever, no leukocytosis - Carotid Dopplers -ve for high stenosis Plan: - Will Continue empiric vanco + pip/jesus d#5 - TTE done today, cardiology does not recommend MARTHA given pt's risk - Will await final blood cultures, if negative, will stop IV abx. - Will most likely need event monitor recommended by cardiology - continue ASA + statin - PT/OT - Pt will be discharged on section 35 to rehab - Discussed with cardiology - TTE with be done, does not recommend MARTHA. as pt has been afebrile, no grwoth on cultures for 5 days, will dc ABx on discharge Polysubstance abuse opioid withdrawal-improved - Psych consulted. pt on naltrexone; will not give opioid substitution therapy. - Continue standing clonidine + hydroxyzine, prn lorazepam - HBV/HCV/HIV- negative - Continue thiamine and folic acid daily - nicotine patch Toxic/metabolic encephalopathy- improved - due to substaince abuse/withdrawal as well as embolic stroke leukocytosis- resolved - empiric ABX as above. not septic Severe protein/calorie malnutrition - supplements # mood disorder - continue home bupropion + paroxetine # VTE ppx - LMWH # dispo - awaiting short-term rehab,, sister will file Sec 35, bed search in effect
--- NOTE | 2020-11-07 16:20 | MHC.CM.PN ---
CM SPOKE TO PT THIS MORNING WHO REPORTED SHE WOULD LIKE TO GO HOME AN DOES NOT WANT TO GO TO STR. PER PT, PT NO LONGER APPROPRIATE FOR STR. PT LIKELY TO DC TOMORROW, HOME WITH NO SERVICES AND IS AWARE. SHEY RECEIVED A CALL FROM PTS SISTER, LUCIANO, WHO REPORTED FAMILY WOULD BE FILING FOR A SECTION 35 LIKELY TOMORROW CM SPOKE TO PTS SON, CHRISTI ([phone]) WHO REPORTS HE IS DOING THE PAPERWORK FOR THE SECTION 35 THIS EVENING AND WILL GO TO THE COURT FIRST THING Wednesday. HE WILL UPDATE CM Wednesday.
--- NOTE | 2020-11-07 18:28 | PC.NURSE ---
Patient less agitated today but still remains very anxious. Given PRN ativan with positive effect. Patient was witnessed inducing vomiting by sticking her hands down her throat. Vitals stable. Plan to discharge to rehab tomorrow.
[2020-11-07] MEDS: Multivitamin TABLET 1 TAB PO (21:35)
[2020-11-07] MEDS: Atorvastatin Calcium 40 MG TABLET PO (21:35)
[2020-11-07] MEDS: Naltrexone HCl 50 MG TABLET PO (22:07)
[2020-11-08] MEDS: Enoxaparin Sodium 30 MG/0.3 ML SYRINGE SUBCUT (00:38)
[2020-11-08] MEDS: hydrOXYzine HCL 25 MG TABLET PO ×2 (00:38→06:18)
[2020-11-08] MEDS: 0.9 % Sodium Chloride Flush 3 ML SYRINGE IVFLUSH ×2 (00:38→09:41)
[2020-11-08 03:08] VITALS: BP 115/66; PULSE 68; RESP 20; TEMP 36.6; O2SAT 99
[2020-11-08] MEDS: Piperacillin Sodium/Tazobactam 2.25 GM in 0.9 % Sodium Chloride 50 ML IV ×2 (04:10→09:41)
[2020-11-08] MEDS: Omeprazole 20 MG CAPSULE.DR PO (06:18)
[2020-11-08] MEDS: Salmeterol Xinafoate 50 MCG BLST.W.DEV 1 PUFF INHALE (07:27)
[2020-11-08 07:29] VITALS: PULSE 80; O2SAT 99
[2020-11-08 07:40] VITALS: BP 107/78; PULSE 93; RESP 19; TEMP 36.4; O2SAT 100
[2020-11-08 09:40] VITALS: BP 107/78; PULSE 93
[2020-11-08] MEDS: Thiamine HCL 100 MG TABLET PO (09:40)
[2020-11-08] MEDS: Famotidine 20 MG TABLET 10 MG PO (09:40)
[2020-11-08] MEDS: cloNIDine HCL 0.1 MG TABLET 0.2 MG PO (09:40)
[2020-11-08] MEDS: buPROPion HCl XL 300 MG TAB.ER.24H PO (09:40)
[2020-11-08] MEDS: Aspirin 81 MG TAB.CHEW PO (09:40)
[2020-11-08] MEDS: PARoxetine HCL 20 MG TABLET PO (09:41)
--- NOTE | 2020-11-08 10:17 | MHC.CM.PN ---
CM spoke to pts son, Haris ([phone]) who reports he is currently at the court and they have already approved the request for a hearing on a section 35. He reports they told him the pt would need ot appear before 1400 hours or they would not be able to place her before the weekend. Pt will be discharged this morning and CM will coordinate with pts son to have her picked up and brought to the hearing at [facility].
--- NOTE | 2020-11-08 10:34 | W.MHC.F2F ---
Service Date Service Date: 11/08/20 Encounter Date of encounter: 11/07/20 Reasons for Services Signs and symptoms assessed: stroke, drug abuse Reason for mcc: medication management Reason for physical therapy: home safety and mobility and therapeutic exercises Homebound: Leaving the home is medically contraindicated at this time without the asist of a device and/or another person due th the listed conditions above and below. Certification: Based on the above findings, I certify that this patient is confined to the home and needs intermittent mcc care, physical therapy and/or speech therapy, or continues to need occupational therapy. The patient is under my care, and I have initiated the establishment of the plan of care. The patient will be followed by a physician who will periodically review the plan of care.
--- NOTE | 2020-11-08 11:16 | P.DS_ITS ---
DS: Providers Provider Date of admission: 11/01/20 20:46 Primary care physician: Unknown Physician Consults: 11/01/20 22:55 Consult to Neurology Routine Consulting Provider: [facility] Reason for consultation: embolic stroke Has provider been notified: Yes 11/02/20 08:54 Consult to Psychiatry Routine Consulting Provider: [place] [place] for consultation: polysubstance withdrawal 11/02/20 09:07 Consult to Care Team Routine Comment: Reason for consultation: polysbustance abuse. -> embolic CVA 11/05/20 08:38 Consult to Cardiology Routine Consulting Provider: Prosper Jj Reason for consultation: concern for endocarditis/has ambolic stroke Has provider been notified: No DS: Diagnosis Discharge Diagnosis (1) Embolic stroke: Status: Acute (2) Polysubstance abuse: Status: Acute DS: Medications Discharge Medications Home Medications: Home Medications Medication Instructions Recorded Confirmed Serevent Diskus 1 inh INHALATION BID 11/01/20 11/01/20 bupropion HCl [Wellbutrin XL] 300 mg PO DAILY 11/01/20 11/01/20 famotidine 20 mg PO BID 11/01/20 11/01/20 naltrexone 50 mg PO BEDTIME 11/01/20 11/01/20 pantoprazole [Protonix] 40 mg PO DAILY 11/01/20 11/01/20 paroxetine HCl [Paxil] 20 mg PO DAILY 11/01/20 11/01/20 Previous Rx's Medication Instructions Recorded aspirin 81 mg PO DAILY #30 tab 11/08/20 atorvastatin 40 mg PO BEDTIME #30 tab 11/08/20 clonidine HCl 0.2 mg PO TID #60 tab 11/08/20 multivitamin with folic acid 1 tab PO BEDTIME #30 tab 11/08/20 [Tab-A-Evelyn] nicotine 14 mg TRANSDERMAL DAILY #30 ea 11/08/20 thiamine mononitrate (vit B1) 100 mg PO DAILY #30 tab 11/08/20 DS: Summary Hospital Course Hospital Course: HPI 60-year-old female with past medical history of polysubstance abuse, GERD, who presents to the hospital after family found her to be altered at home. History is obtained mostly from ED physician as well as EMR as patient is somewhat confused, not following my questions and not answering appropriately. According to chart Past shins family tried to reach her but were unable to contact her for 2 days, her sister went to her home and found her wandering around had aphasic speech. Therefore EMS was called and patient was brought into the hospital. Patient herself denies any symptoms at this time but cubes repeating herself that she wants food. She is not oriented to place or time. Unable to obtain rest of review of system is patient is altered and is not really answer my questions. On arrival to the ED hemodynamically stable with no significant abnormal vitals Labs are significant for WBC count of 12.5, globin of 10.4, sodium of 134, BUN of 33 with a creatinine of 1.42, AST of 44, CPK of 360, high sensitivity troponin of 67.9, patient denies chest pain. Initial head CT was negative, MRI done that in the day showed numerous foci of acute infarction seen within multiple vascular territories most concerning for an embolic etiology. The greatest burden of infarcts are seen in the left MCA vascular territory. Chronic infarcts are seen within the bilateral occipital lobes. no hemorrhage or mass effect. hospital course 60-year-old female with drug abuse presented with confusion and difficulty with speech, admitted for stroke, CT head on admission shows no acute stroke , MRI brain shows multiple acute infarcts, CTA head shows occlusion at the left M1-M2 junction , neurology was consulted reconciled likely embolic was started on aspirin and statins given i/v drug use was started on i/v antibiotics and recommended cardiology consult , cardiology was consulted cardiology reconciled no need for MARTHA, patient was also started on IV antibiotic given IV drug use and multiple infarcts , blood cultures remain negative, antibiotics were stopped, patient remained stable , patient was alert and awake, was seen by Physical therapy recommended home PT,care team eas consulted given IV drug use, patient was discharged was co ordinated with family to court and family filed Section 35 given IV drug use Time Spent with Patient Time attestation: Total time spent providing and/or coordinating discharge services: Quality: Stroke Pt Provided Written Stroke Discharge Instructions: Patient given written information Physical Exam Vital Signs: Vital Signs: Last Vital Signs Temp 97.5 F 11/08/20 07:40 Pulse 93 11/08/20 09:40 Resp 19 11/08/20 07:40 BP 107/78 11/08/20 09:40 Pulse Ox 100 11/08/20 07:40 Body Mass Index 13.7 DS: Data Data Completed and Pending Labs on day of discharge: 11/01/20 14:40 ECG 12 lead EKG Stat EKG Documentation DIRECTED CT cervical spine wo con Stat CT head/brain wo con Stat 11/01/20 14:41 XR chest 1V Stat 11/01/20 14:45 XR foot RT min 3V Stat 0.9 % Sodium Chloride [Ns] 1,000 ml IVCONT 999 mls/hr Piperacillin Sodium/Tazobactam [Zosyn] 3.375 gm 0.9 % Sodium Chloride [Ns] 50 ml IV ONCE 11/01/20 15:18 COVID-19 ID NOW (Schulz) Stat 11/01/20 15:19 Acetaminophen LAB Stat Ammonia Stat Basic Metabolic Panel Stat Complete Blood Count Auto Diff Stat Creatine Kinase Total Stat Ethanol Stat Lactic Acid Stat Lipase Stat Liver Panel Stat Magnesium Stat Salicylate Stat Troponin-I High Sensitivity Stat 11/01/20 15:51 Partial Thromboplastin Time Stat Prothrombin Time INR Stat Blood Culture X2 [BC] Stat 11/01/20 15:53 Piperacillin Sodium/Tazobactam [Zosyn] 3.375 gm IV .STK-MED ONE 11/01/20 16:10 MR head/brain wo con Stat 11/01/20 16:30 0.9 % Sodium Chloride [Ns] 1,000 ml IVCONT 999 mls/hr 11/01/20 16:47 Venous Blood Gas Stat 11/01/20 17:57 Drug Screen Urine Stat 11/01/20 19:41 Aspirin 324 mg PO ONCE ONE 11/01/20 20:35 Transfer Order Routine 11/01/20 20:52 Troponin-I High Sensitivity Stat 11/01/20 22:55 0.9 % Sodium Chloride [Ns] 1,000 ml IVCONT 100 mls/hr Aspirin 81 mg PO DAILY ONE cloNIDine HCL [Catapres] 0.1 mg PO TID PRN hydrOXYzine HCL [Atarax] 25 mg PO Q6H PRN 11/01/20 23:00 vancomycin HCL 750 mg 0.9 % Sodium Chloride [Ns] 250 ml IV Q48H 11/02/20 00:02 Piperacillin Sodium/Tazobactam [Zosyn] 2.25 gm IV .STK-MED ONE 11/02/20 01:06 vancomycin HCL 750 mg IV .STK-MED ONE 11/02/20 05:35 LORazepam [Ativan] 0.25 mg IVPUSH ONCE ONE 11/02/20 06:31 LORazepam [Ativan] 0.25 mg IM ONCE ONE 11/02/20 08:56 EKG Documentation DIRECTED OLANZapine [ZyPREXA] 5 mg PO ONCE ONE 11/02/20 09:14 C Reactive Protein Stat Complete Blood Count Auto Diff Stat Comprehensive Met. Panel Stat Creatine Kinase Total Stat 11/02/20 11:21 LORazepam [Ativan] 0.5 mg IVPUSH Q4H PRN 11/02/20 14:55 Piperacillin Sodium/Tazobactam [Zosyn] 2.25 gm IV .STK-MED ONE 11/02/20 16:33 cloNIDine HCL [Catapres] 0.2 mg PO ONCE ONE 11/02/20 17:00 Thiamine HCL 250 mg 0.9 % Sodium Chloride [Ns] 100 ml IV Q24H 11/02/20 20:40 Piperacillin Sodium/Tazobactam [Zosyn] 2.25 gm IV .STK-MED ONE 11/02/20 21:50 LORazepam [Ativan] 1 mg IVPUSH ONCE ONE 11/03/20 03:34 Piperacillin Sodium/Tazobactam [Zosyn] 2.25 gm IV .STK-MED ONE 11/03/20 07:06 Basic Metabolic Panel Routine HIV Ab/Ag Routine Hepatitis B,C Profile Routine Lipid Panel with Reflex Routine Prealbumin Routine 11/03/20 08:38 Add Laboratory Test Routine 11/03/20 10:09 Piperacillin Sodium/Tazobactam [Zosyn] 2.25 gm IV .STK-MED ONE 11/03/20 12:00 vancomycin HCL 750 mg 0.9 % Sodium Chloride [Ns] 250 ml IV Q24H 11/03/20 12:17 vancomycin HCL 750 mg IV .STK-MED ONE 11/03/20 16:45 Piperacillin Sodium/Tazobactam [Zosyn] 2.25 gm IV .STK-MED ONE 11/03/20 20:53 Thiamine HCL 200 mg .ROUTE .STK-MED ONE 11/03/20 20:54 Piperacillin Sodium/Tazobactam [Zosyn] 2.25 gm IV .STK-MED ONE 11/04/20 CT angio head neck Routine MR head/brain w con Routine US carotid duplex BI Stat 11/04/20 03:04 Piperacillin Sodium/Tazobactam [Zosyn] 2.25 gm IV .STK-MED ONE 11/04/20 05:37 Basic Metabolic Panel Routine Complete Blood Count Auto Diff Routine Erythrocyte Sedimentation Rate Routine Procalcitonin Routine 11/04/20 09:04 Piperacillin Sodium/Tazobactam [Zosyn] 2.25 gm IV .STK-MED ONE 11/04/20 11:08 iohexoL 350 MG/ML [Omnipaque 350 MG/ML] 80 ml IV ONCE ONE 11/04/20 12:02 GadobutroL [Gadavist] 7.5 ml IVPUSH ONCE ONE 11/04/20 12:36 vancomycin HCL 750 mg IV .STK-MED ONE 11/04/20 15:58 Piperacillin Sodium/Tazobactam [Zosyn] 2.25 gm IV .STK-MED ONE 11/04/20 21:57 Piperacillin Sodium/Tazobactam [Zosyn] 2.25 gm IV .STK-MED ONE 11/05/20 06:02 Piperacillin Sodium/Tazobactam [Zosyn] 2.25 gm IV .STK-MED ONE 11/05/20 10:56 Piperacillin Sodium/Tazobactam [Zosyn] 2.25 gm IV .STK-MED ONE 11/05/20 11:02 Vancomycin Trough Routine 11/05/20 13:04 vancomycin HCL 1,000 mg .ROUTE .STK-MED ONE 11/05/20 16:43 Piperacillin Sodium/Tazobactam [Zosyn] 2.25 gm IV .STK-MED ONE 11/05/20 21:47 Piperacillin Sodium/Tazobactam [Zosyn] 2.25 gm IV .STK-MED ONE 11/05/20 22:55 CA echo transthoracic complete Routine 11/06/20 05:27 Piperacillin Sodium/Tazobactam [Zosyn] 2.25 gm IV .STK-MED ONE 11/06/20 08:40 Basic Metabolic Panel Stat Complete Blood Count Auto Diff Stat 11/06/20 08:50 Piperacillin Sodium/Tazobactam [Zosyn] 2.25 gm IV .STK-MED ONE 11/06/20 09:00 Thiamine HCL [Vitamin B-1] 100 mg PO DAILY 11/06/20 11:59 vancomycin HCL 1,000 mg .ROUTE .STK-MED ONE 11/06/20 15:32 Piperacillin Sodium/Tazobactam [Zosyn] 2.25 gm IV .STK-MED ONE 11/06/20 20:32 Piperacillin Sodium/Tazobactam [Zosyn] 2.25 gm IV .STK-MED ONE 11/07/20 04:05 Piperacillin Sodium/Tazobactam [Zosyn] 2.25 gm IV .STK-MED ONE 11/07/20 10:52 Piperacillin Sodium/Tazobactam [Zosyn] 2.25 gm IV .STK-MED ONE 11/07/20 12:09 vancomycin HCL 1,000 mg .ROUTE .STK-MED ONE 11/07/20 15:28 Piperacillin Sodium/Tazobactam [Zosyn] 2.25 gm IV .STK-MED ONE 11/07/20 21:15 Piperacillin Sodium/Tazobactam [Zosyn] 2.25 gm IV .STK-MED ONE 11/08/20 04:03 Piperacillin Sodium/Tazobactam [Zosyn] 2.25 gm IV .STK-MED ONE 11/08/20 09:33 Piperacillin Sodium/Tazobactam [Zosyn] 2.25 gm IV .STK-MED ONE Laboratory Last Values WBC 6.2 X10*3/uL (4.8-10.8) 11/06/20 08:40 RBC 3.83 X10*6/uL (4.20-5.50) L 11/06/20 08:40 Hgb 10.4 g/dl (12.0-16.0) L 11/06/20 08:40 Hct 32.7 % (37-47) L 11/06/20 08:40 MCV 85.4 fL (80-98) 11/06/20 08:40 MCH 27.2 pg (27.0-33.0) 11/06/20 08:40 MCHC 31.8 g/dl (31.0-35.0) 11/06/20 08:40 RDW 15.4 % (11.0-16.0) 11/06/20 08:40 Plt Count 388 X10*3/uL (160-400) 11/06/20 08:40 MPV 10.8 fL (9.4-12.3) 11/06/20 08:40 Immature Gran % (Auto) 0.3 % (0.0-0.4) 11/06/20 08:40 Neut % (Auto) 61.7 % (45-73) 11/06/20 08:40 Lymph % (Auto) 23.0 % (20-40) 11/06/20 08:40 [place] % (Auto) 10.0 % (2-11) 11/06/20 08:40 Eos % (Auto) 4.0 % (0-4) 11/06/20 08:40 Baso % (Auto) 1.0 % (0-2) 11/06/20 08:40 Lymph # (Auto) 1.4 X10*3/uL (1.2-4.9) 11/06/20 08:40 Independence # (Auto) 0.6 X10*3/uL (0.1-1.2) 11/06/20 08:40 Eos # (Auto) 0.3 X10*3/uL (0.0-0.4) 11/06/20 08:40 Baso # (Auto) 0.1 X10*3/uL (0.0-0.2) 11/06/20 08:40 Abs Immat Gran (auto) 0.02 X10*3/uL (0.00-0.03) 11/06/20 08:40 Absolute Neuts (auto) 3.9 X10*3/uL (2.0-8.3) 11/06/20 08:40 Absolute Nucleated RBC 0.000 X10*3/uL (0.0-0.012) 11/06/20 08:40 Nucleated RBC % (auto) 0.0 /100WBC (0.0-0.2) 11/06/20 08:40 ESR 6 MM/HR (0-20) 11/04/20 05:37 PT 12.3 SEC (10.8-13.0) 11/01/20 15:51 INR 1.0 (0.9-1.1) 11/01/20 15:51 APTT 27.8 SEC (24.1-38.0) 11/01/20 15:51 VBG pH 7.53 (7.32-7.43) H 11/02/20 00:10 VBG pCO2 30 mmhg 11/02/20 00:10 VBG pO2 73 mmhg 11/02/20 00:10 VBG HCO3 25 mmol/L 11/02/20 00:10 VBG O2 Saturation 95.2 % 11/02/20 00:10 VBG Base Excess 2.4 mmol/L 11/02/20 00:10 Sodium 136 mmol/L (135-145) 11/06/20 08:40 Potassium 4.9 mmol/l (3.3-5.1) 11/06/20 08:40 Chloride 107 mmol/L (96-108) 11/06/20 08:40 Carbon Dioxide 21 mmol/L (22-29) L 11/06/20 08:40 Anion Gap 13 (-20) 11/06/20 08:40 BUN 28 mg/dL (9-16) H 11/06/20 08:40 Creatinine 1.27 mg/dL (0.5-1.4) 11/06/20 08:40 Estim Creat Clear Calc 28.3 11/06/20 08:40 Estimated GFR 43 11/06/20 08:40 Random Glucose 85 mg/dL (60-115) 11/06/20 08:40 Lactic Acid 1.5 mmol/L (0.5-2.0) 11/01/20 15:19 Calcium 8.2 mg/dL (8.4-10.2) L 11/06/20 08:40 Magnesium 2.0 mg/dL (1.6-2.6) 11/01/20 15:19 Total Bilirubin 0.3 mg/dL (0.0-1.0) 11/02/20 09:14 Direct Bilirubin 0.3 mg/dL (0.0-0.5) 11/01/20 15:19 AST 28 U/L (5-31) 11/02/20 09:14 ALT 18 U/L (0-31) 11/02/20 09:14 Alkaline Phosphatase 82 U/L (39-117) 11/02/20 09:14 Ammonia 35 umol/L (13-55) 11/01/20 15:19 Total Creatine Kinase 284 U/L (26-140) H 11/02/20 09:14 Troponin I High Sens 47.4 ng/L (<3.5-17.0) H 11/02/20 00:10 C-Reactive Protein 5.58 mg/dL (< or = 0.50) H 11/02/20 09:14 Total Protein 6.0 g/dL (6.5-8.0) L 11/02/20 09:14 Albumin 3.3 g/dL (3.5-5.0) L 11/02/20 09:14 Prealbumin 12.0 mg/dL (20-40) L 11/03/20 07:06 Triglycerides 54 mg/dL 11/03/20 07:06 Cholesterol 135 mg/dL 11/03/20 07:06 LDL Cholesterol, Calc 59 mg/dl 11/03/20 07:06 HDL Cholesterol 66 mg/dL 11/03/20 07:06 Lipase 15 U/L (8-78) 11/01/20 15:19 Procalcitonin 0.05 ng/mL 11/04/20 05:37 Urine Color YELLOW 11/01/20 17:57 Urine Appearance CLEAR 11/01/20 17:57 Urine pH 6.5 (5.0-8.0) 11/01/20 17:57 Ur Specific Holstein 1.020 (1.005-1.025) 11/01/20 17:57 Urine Protein TRACE MG/DL (NEG-TRACE) 11/01/20 17:57 Urine Glucose (UA) NEG MG/DL (NEG) 11/01/20 17:57 Urine Ketones NEG MG/DL (NEG) 11/01/20 17:57 Urine Blood 1+ (NEG) H 11/01/20 17:57 Urine Nitrite NEG (NEG) 11/01/20 17:57 Ur Leukocyte Esterase NEG (NEG) 11/01/20 17:57 Urine RBC 5-9 /HPF (0) H 11/01/20 17:57 Urine WBC 0-2 /HPF (0-4) 11/01/20 17:57 Ur Squamous Epith Cells 2+ /LPF 11/01/20 17:57 Urine Bacteria NONE /LPF 11/01/20 17:57 Vancomycin Trough 7.7 mcg/mL (10.0-20.0) L 11/05/20 11:02 Salicylates < 5.0 mg/dL (15-30) L 11/01/20 15:19 Urine Opiates Screen POSITIVE (Not Detect) H 11/01/20 17:57 Acetaminophen < 1 mcg/mL (<30) 11/01/20 15:19 Ur Barbiturates Screen Not Detected (Not Detect) 11/01/20 17:57 Ur Phencyclidine Scrn Not Detected (Not Detect) 11/01/20 17:57 Ur Amphetamines Screen Not Detected (Not Detect) 11/01/20 17:57 U Benzodiazepines Scrn POSITIVE (Not Detect) H 11/01/20 17:57 Urine Cocaine Screen POSITIVE (Not Detect) H 11/01/20 17:57 U Marijuana (THC) Screen Not Detected (Not Detect) 11/01/20 17:57 Ethyl Alcohol < 10 mg/dL 11/01/20 15:19 COVID-19 (YASMANI) Negative (Negative) 11/01/20 15:18 COVID-19 Clin Com See Note 11/01/20 15:18 Hep Bs Antigen Negative (Negative) 11/03/20 07:06 Hep Bs Antibody NONREACTIVE (Nonreactive) 11/03/20 07:06 Hep B Core Total Ab Nonreactive (Nonreactive) 11/03/20 07:06 Hepatitis C Ab (EIA) Nonreactive (Nonreactive) 11/03/20 07:06 HIV 1&2 Ab/P24 Ag 4thGn Nonreactive (Nonreactive) 11/03/20 07:06 Discharge Plan Discharge Anticipated Discharge Date/Time: 11/08/20 10:13 Patient Disposition: Home Health Service Referrals: Physician,Unknown [Primary Care Provider] - Discharge Medications: New nicotine 14 mg/24 hr Patch 24 Hour 14 mg transdermal DAILY Qty: 30 RF: 0 atorvastatin 40 mg Tablet 40 mg PO BEDTIME Qty: 30 RF: 0 clonidine HCl 0.1 mg Tablet 0.2 mg PO TID Qty: 60 RF: 0 aspirin 81 mg Tablet,Chewable 81 mg PO DAILY Qty: 30 RF: 0 thiamine mononitrate (vit B1) 100 mg Tablet 100 mg PO DAILY Qty: 30 RF: 0 multivitamin with folic acid [Tab-A-Evelyn] 400 mcg Tablet 1 tab PO BEDTIME Qty: 30 RF: 0 Continued naltrexone 50 mg Tablet 50 mg PO BEDTIME RF: 0 pantoprazole [Protonix] 40 mg Tablet,Delayed Release (Dr/Ec) 40 mg PO DAILY RF: 0 famotidine 20 mg Tablet 20 mg PO BID RF: 0 paroxetine HCl [Paxil] 20 mg Tablet 20 mg PO DAILY RF: 0 Serevent Diskus 50 mcg/dose Blister With Device 1 inh INHALATION BID RF: 0 bupropion HCl [Wellbutrin XL] 300 mg Tablet Extended Release 24 Hr 300 mg PO DAILY RF: 0 Discharge Orders: Discharge Order (Routine); Ordered 11/08/20 Ordered By: Liborio Skinner Diet: advance to usual diet Activity on Discharge: As tolerated Discharge Date/Time: 11/08/20 12:15 Visit Report Forms: Patient Portal Discharge page Care Plan Goals: Improved strength Health Concerns: acute stroke, Plan of Treatment: aspirin and statin , resources provided by care team
[2020-11-08 11:25] VITALS: BP 140/90; PULSE 69; RESP 17; TEMP 36.6; O2SAT 99
== END 2020-11-08 12:15 | disposition home health service (06) | DRG 64 ==
LOC: HO.ED 18:50 → HO.IMC 21:13
PROVIDERS: Emergency Medicine; Family Medicine; Admitting Provider Internal Medicine; Emergency Provider Internal Medicine; Visit Provider Internal Medicine
DX: I63.412 Cerebral infarction due to embolism of left middle cerebral artery (principal); E43 Unspecified severe protein-calorie malnutrition; G92 Toxic encephalopathy; I76 Septic arterial embolism; Z68.1 Body mass index [BMI] 19.9 or less, adult; F11.13 Opioid abuse with withdrawal; F39 Unspecified mood [affective] disorder; D72.829 Elevated white blood cell count, unspecified; K21.9 Gastro-esophageal reflux disease without esophagitis; F14.10 Cocaine abuse, uncomplicated; R29.705 NIHSS score 5; Z20.828 Contact with and (suspected) exposure to other viral communicable diseases; Z79.82 Long term (current) use of aspirin; Z79.899 Other long term (current) drug therapy
CPT/HCPCS: 36415; 70450; 70496; 70498; 70551; 70552; 71045; 72125; 73630; 80048; 80053; 80061; 80076; 80202; 80307; 80320; 81001; 82140; 82550; 82803; 83605; 83690; 83735; 84134; 84145; 84425; 84484; 85025; 85610; 85652; 85730; 86140; 86704; 86706; 86803; 87040; 87340; 87389; 87635; 93005; 93306; 93880; 96361; 96365; 97110; 97116; 97162; 97166; 97530; 97535; 99223; 99283; 99285; A9585; G0480; J1650; J2060; J2543; J3370; J3411; Q9967